=== PATIENT | male | born 1985 | race American Indian/Alaskan Native ===

== ENCOUNTER 2018-06-04 08:05 | Emergency (ER) | payer MEDICAID, OTHER ==
--- NOTE | 2018-06-04 09:48 | Emergency Department Report ---
HPI - General Chief Complaint: Psych Time Seen by Provider: 06/04/18 09:37 - HPI HPI: Room 13 The patient is a 33-year-old male presented with a chief complaint suicidal ideation. The patient states he's been feeling depressed and suicidal since 03:00 this morning. Patient denies any attempts at trying to harm himself but states his plan was to overdose on pills. Patient admits to previous suicide attempt one year ago by overdosing on pills Location: Mental state Duration: Onset at 03:00 Quality: Suicidal Severity: Severe Modifying factors: [see above] Context: [see above] Mode of transportation: [not driving] ED Past Medical Hx - Past Medical History Hx Hypertension: Yes Hx Psychiatric Treatment: Yes ([facility], [facility]) Hx Asthma: Yes - Surgical History Past Surgical History?: No - Family History Family history: no significant - Social History Smoking Status: Current Every Day Smoker (1/3 pack per day) Substance Use Type: None (denies illicit drug use), Alcohol (frequently) - Medications Home Medications: Home Medications Medication Instructions Recorded Confirmed Last Taken Type Amlodipine Besylate [Norvasc] 2.5 mg PO DAILY 02/19/13 02/19/13 Unknown History LORazepam [Ativan] 02/19/13 02/19/13 Unknown History Quetiapine Fumarate [Seroquel] 25 mg PO 02/19/13 02/19/13 Unknown History ED Review of Systems ROS: Stated complaint: THOUGHTS OF HURTING SELF Other details as noted in HPI Constitutional: no symptoms reported Eyes: denies: eye pain ENT: denies: throat pain Respiratory: no symptoms reported Cardiovascular: denies: chest pain Endocrine: no symptoms reported Gastrointestinal: denies: abdominal pain Genitourinary: denies: dysuria Musculoskeletal: denies: back pain Neurological: denies: headache Psychiatric: suicidal thoughts Physical Exam - Physical Exam Vital Signs: Vital Signs 06/04/18 08:06 Temperature 98.3 F Pulse Rate 104 H Respiratory 18 Rate Blood Pressure 161/105 [Right] O2 Sat by Pulse 98 Oximetry Physical Exam: GENERAL: The patient is well-developed well-nourished male sitting in chair not appearing to be in acute distress. [] HEENT: Normocephalic. Atraumatic. Extraocular motions are intact. Patient has moist mucous membranes. NECK: Supple. Trachea midline CHEST/LUNGS: Clear to auscultation. There is no respiratory distress noted. HEART/CARDIOVASCULAR: Regular. There is no tachycardia. There is no gallop rub or murmur. ABDOMEN: Abdomen is soft, nontender. Patient has normal bowel sounds. There is no abdominal distention. SKIN: There is no rash. There is no edema. There is no diaphoresis. NEURO: The patient is awake, alert, and oriented. The patient is cooperative. The patient has normal speech MUSCULOSKELETAL: There is no evidence of acute injury. ED Course Vital Signs 06/04/18 08:06 Temperature 98.3 F Pulse Rate 104 H Respiratory 18 Rate Blood Pressure 161/105 [Right] O2 Sat by Pulse 98 Oximetry ED Medical Decision Making - Lab Data Result diagrams: 06/04/18 10:00 06/04/18 10:00 Laboratory Tests 06/04/18 06/04/18 06/04/18 10:00 10:00 10:00 WBC 4.7 RBC 3.56 L Hgb 11.8 Hct 35.1 L MCV 99 H MCH 33 H MCHC 34 RDW 14.6 Plt Count 222 Lymph % (Auto) [employer] [place] % (Auto) [employer] Add Manual Diff Complete Total Counted 100 Seg Neutrophils % [employer] Seg Neuts % (Manual) 44.0 Band Neutrophils % 0 Lymphocytes % (Manual) 41.0 H Reactive Lymphs % (Man) 0 Monocytes % (Manual) 10.0 H Eosinophils % (Manual) 5.0 H Basophils % (Manual) 0 Metamyelocytes % 0 Myelocytes % 0 Promyelocytes % 0 Blast Cells % 0 Nucleated RBC % Not Reportable Seg Neutrophils # Man 2.1 Band Neutrophils # 0.0 Lymphocytes # (Manual) 1.9 Abs React Lymphs (Man) 0.0 Monocytes # (Manual) 0.5 Eosinophils # (Manual) 0.2 Basophils # (Manual) 0.0 Metamyelocytes # 0.0 Myelocytes # 0.0 Promyelocytes # 0.0 Blast Cells # 0.0 WBC Morphology Not Reportable Hypersegmented Neuts Not Reportable Hyposegmented Neuts Not Reportable Hypogranular Neuts Not Reportable Smudge Cells Not Reportable Toxic Granulation Not Reportable Toxic Vacuolation Not Reportable Dohle Bodies Not Reportable Pelger-Huet Anomaly Not Reportable Meche Rods Not Reportable Platelet Estimate Consistent w auto Clumped Platelets Not Reportable Plt Clumps, EDTA Not Reportable Large Platelets Not Reportable Giant Platelets Not Reportable Platelet Satelliting Not Reportable Plt Morphology Comment Not Reportable RBC Morphology Not Reportable Dimorphic RBCs Not Reportable Polychromasia Few Hypochromasia Not Reportable Poikilocytosis Not Reportable Anisocytosis 1+ Microcytosis Not Reportable Macrocytosis Not Reportable Spherocytes Not Reportable Pappenheimer Bodies Not Reportable Sickle Cells Not Reportable Target Cells Not Reportable Tear Drop Cells Not Reportable Ovalocytes Not Reportable Helmet Cells Not Reportable [place] Bodies Not Reportable [place] Rings Not Reportable Micha Cells Not Reportable Bite Cells Not Reportable Crenated Cell Not Reportable Elliptocytes Not Reportable Acanthocytes (Spur) Not Reportable Rouleaux Not Reportable Hemoglobin C Crystals Not Reportable Schistocytes Not Reportable Malaria parasites Not Reportable Barron Bodies Not Reportable Hem Pathologist Commnt No Sodium 142 Potassium 4.1 Chloride 104.8 Carbon Dioxide 25 Anion Gap 16 BUN 10 Creatinine 1.0 Estimated GFR > 60 BUN/Creatinine Ratio 10 Glucose 108 H Calcium 9.0 Total Bilirubin 0.20 AST 41 H ALT 84 H Alkaline Phosphatase 47 Total Protein 6.7 Albumin 3.8 L Albumin/Globulin Ratio 1.3 Salicylates < 0.3 L Acetaminophen Plasma/Serum Alcohol 06/04/18 06/04/18 10:00 10:00 WBC RBC Hgb Hct MCV MCH MCHC RDW Plt Count Lymph % (Auto) [place] % (Auto) Add Manual Diff Total Counted Seg Neutrophils % Seg Neuts % (Manual) Band Neutrophils % Lymphocytes % (Manual) Reactive Lymphs % (Man) Monocytes % (Manual) Eosinophils % (Manual) Basophils % (Manual) Metamyelocytes % Myelocytes % Promyelocytes % Blast Cells % Nucleated RBC % Seg Neutrophils # Man Band Neutrophils # Lymphocytes # (Manual) Abs React Lymphs (Man) Monocytes # (Manual) Eosinophils # (Manual) Basophils # (Manual) Metamyelocytes # Myelocytes # Promyelocytes # Blast Cells # WBC Morphology Hypersegmented Neuts Hyposegmented Neuts Hypogranular Neuts Smudge Cells Toxic Granulation Toxic Vacuolation Dohle Bodies Pelger-Huet Anomaly Meche Rods Platelet Estimate Clumped Platelets Plt Clumps, EDTA Large Platelets Giant Platelets Platelet Satelliting Plt Morphology Comment RBC Morphology Dimorphic RBCs Polychromasia Hypochromasia Poikilocytosis Anisocytosis Microcytosis Macrocytosis Spherocytes Pappenheimer Bodies Sickle Cells Target Cells Tear Drop Cells Ovalocytes Helmet Cells [place] Bodies [place] Rings [place]auk Cells Bite Cells Crenated Cell Elliptocytes Acanthocytes (Spur) Rouleaux Hemoglobin C Crystals Schistocytes Malaria parasites Barron Bodies Hem Pathologist Commnt Sodium Potassium Chloride Carbon Dioxide Anion Gap BUN Creatinine Estimated GFR BUN/Creatinine Ratio Glucose Calcium Total Bilirubin AST ALT Alkaline Phosphatase Total Protein Albumin Albumin/Globulin Ratio Salicylates Acetaminophen < 5.0 L Plasma/Serum Alcohol < 0.01 - Differential Diagnosis suicidal ideation Critical care attestation.: If time is entered above; I have spent that time in minutes in the direct care of this critically ill patient, excluding procedure time. ED Disposition Clinical Impression: Suicidal ideation Disposition: [id number]/TX-65 PSY HOSP/PSY UNIT Is pt being admited?: No Does the pt Need Aspirin: No Condition: Serious Referrals: DAMIAN ANTOINE MD [Primary Care Provider] - 3-5 Days Time of Disposition: 12:34 (awaiting acceptance)
[2018-06-04 10:20] LABS: Hematocrit 35.1 % (35.5-45.6); Hemoglobin 11.8 gm/dl (11.8-15.2); Mean Corpuscular HGB Conc 34 % (32-34); Mean Corpuscular Volume 99 fl (84-94); Platelet Count 222 K/mm3 (140-440); Red Blood Count 3.56 M/mm3 (3.65-5.03); Red Cell Distribution Width 14.6 % (13.2-15.2)
[2018-06-04 10:39] LABS: Alanine Aminotransferase 84 units/L (7-56); Albumin 3.8 g/dL (3.9-5); BUN/Creatinine Ratio 10; Blood Urea Nitrogen 10 mg/dL (9-20); Hemolysis Index 5
[2018-06-04 11:14] LABS: Basophils % (Manual) 0 % (0.0-1.8); Total Cells Counted 100
[2018-06-04 11:15] LABS: Anisocytosis 1+; Platelet Estimate Consistent w Auto
[2018-06-05 11:10] LABS: Bilirubin,Urine NEG (Negative); Blood,Urine NEG (Negative); Color,Urine Yellow (Yellow); Protein,Urine <15 mg/dL mg/dL (Negative); Urobilinogen,Urine < 2.0 mg/dL (<2.0); WBC,Urine < 1.0 /HPF (0.0-6.0)
[2018-06-05 11:23] LABS: Amphetamine Screen,Urine PRESUMPTIVE NEGATIVE; Benzodiazepines Screen,Urine PRESUMPTIVE NEGATIVE; Cannabinoid Screen,Urine PRESUMPTIVE NEGATIVE; Cocaine Screen,Urine PRESUMPTIVE NEGATIVE; Methadone Screen,Urine PRESUMPTIVE NEGATIVE; Opiate Screen,Urine PRESUMPTIVE NEGATIVE
--- NOTE | 2018-06-05 14:33 | Consultation ---
History of Present Illness - Reason for Consult Consult date: 06/05/18 Reason for consult: Mental Health Evaluation Requesting physician: SHALOM FRANCO - Chief Complaint Chief complaint: "I don't know what to do" - History of Present Psychiatric Illness 33 y.o. AA male who presented to the ER for SI's. Today the patient is calm, but disorganized during the assessment. He stated being depressed and suicidal since he cannot reach his family. He stated that he came to the ER for several reasons. The patient was asked about his reason for coming to the ER, his answers were not logical. Also, he stated that he have not slept in several days because sleep wasn't needed. He denies HI's and VH's. He denies a poor appetite. He denies recreational drug use and alcohol consumption (etoh). Medications and Allergies Allergies Allergy/AdvReac Type Severity Reaction Status Date / Time No Known Allergies Allergy Verified 02/20/13 00:14 Home Medications Medication Instructions Recorded Confirmed Last Taken Type Amlodipine Besylate [Norvasc] 2.5 mg PO DAILY 02/19/13 06/05/18 Unknown History LORazepam [Ativan] 1 mg PO PRN 02/19/13 02/19/13 Unknown History Quetiapine Fumarate [Seroquel] 25 mg PO 02/19/13 02/19/13 06/02/18 09:00 History Wellbutrin 06/05/18 06/02/18 09:00 History Active Meds: Active Medications Diphenhydramine HCl (Benadryl) 25 mg PO HS CATHERINE Olanzapine (Zyprexa) 5 mg PO HS CATHERINE Past psychiatric history - Past Medical History Past Medical History: No medical history Past Surgical History: No surgical history - past Psychiatric treatment and history psychiatric treatment history: Several inpatient psy settings in the past. Unable to obtain a [facility] psy hx. - Social History Social history: lives with family Mental Status Exam - Vital signs Last Vital Signs Temp 98.9 F 06/05/18 13:58 Pulse 93 H 06/05/18 13:58 Resp 18 06/05/18 13:58 BP 141/94 06/05/18 13:58 Pulse Ox 96 06/05/18 13:58 - Exam Narrative exam: MSE: Appearance: in hospital attire Behavior: poor eye contact Speech: regular rate with loud tone Mood:: "down" Affect: constricted Thought Process: disorganized Thought Content: denies HI's and VH's Motor Activity: ambulatory Cognition: A/O x3 Insight: limited Judgment: poor Results Result Diagrams: 06/04/18 10:00 06/04/18 10:00 All other labs normal. 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 Today the patient is calm and cooperative during the assessment. The patient endorses SI's. UDS is negative. DDx: Bipolar DO with psychosis, Schziaffective DO Recommendation/Plan: Continue 1013 and start Zyprexa 5 mg PO HS for psychosis/mood and Benadryl 25 mg Po HS for sleep. Discussed possible metabolic side effects of Zyprexa with the patient reference Zyprexa. Dispo: The patient was referred to inpatient psy services. Staffed with Dr Jerrell Guajardo.
[2018-06-05] MEDS: BENADRYL PO SCH (22:07)
--- NOTE | 2018-06-06 09:21 | Progress Note ---
Subjective - Reason for Consult Consult date: 06/06/18 Reason for consult: Psychiatry Follow-up - Chief Complaint Chief complaint: "Hello" 33 y.o. AA male who presented to the ER for SI's. Today the patient is calm during the assessment. He stated that he got sleep last night, but continues to endorse SI's without a suicide plan. He stated that the voices are not active. He stated he is still sad about about not being able to contact his family. He denies Hi's and AVH's. He denies any side effects of his medication. 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 Today the patient is calm and cooperative during the assessment. The patient endorses SI's. UDS is negative. DDx: Bipolar DO with psychosis, Schziaffective DO Recommendation/Plan: Continue 1013 and Zyprexa 5 mg PO HS for psychosis/mood and Benadryl 25 mg Po HS for sleep. Discussed possible metabolic side effects of Zyprexa with the patient reference Zyprexa. Dispo: The patient was referred to inpatient psy services. Staffed with Dr Makenzie Guajardo.
[2018-06-06] MEDS: BENADRYL PO SCH (22:08)
--- NOTE | 2018-06-07 12:07 | Progress Note ---
Subjective - Reason for Consult Consult date: 06/07/18 Reason for consult: Psychiatry Follow-up - Chief Complaint Chief complaint: "I'm doing better" 33 y.o. AA male who presented to the ER for SI's. Today the patient is calm and cooperative during the assessment. He stated that he is doing better since getting sleep. He stated that he will stay on his medications when discharged. He would not confirm or deny being sad about not being able to reach his family. He denies SI/HI's and AVH's. He denies any side effects of his medications. Mental Status Exam - Vital signs Last Vital Signs Temp 98.3 F 06/07/18 01:08 Pulse 85 06/07/18 01:08 Resp 18 06/07/18 01:08 BP 123/73 06/07/18 01:08 Pulse Ox 96 06/07/18 01:08 - Exam Narrative exam: MSE: Appearance: calm, cooperative Behavior: regular eye contact Speech: regular rate and tone Mood:: "better" Affect: congruent to mood Thought Process: circumstantial Thought Content: denies SI/HI's and AVH's Motor Activity: ambulatory Cognition: A/O x3 Insight: fair variable Judgment: variable to fair Assessment and Plan Impression: Unspecified Mood DO with psy features. Today the patient is calm and cooperative during the assessment. UDS is negative. DDx: Bipolar DO with psychosis, Schizoaffective DO Recommendation/Plan: Reevaluate 1013 in 24 hours. Continue Zyprexa 5 mg PO HS for psychosis/mood and Benadryl 25 mg Po HS for sleep. Discussed possible metabolic side effects of Zyprexa with the patient reference Zyprexa. Dispo: If the patent's 1013 is rescinded, he can follow up with [facility] for outpatient psy services. Staffed with Dr Tobin.
[2018-06-07] MEDS: BENADRYL PO SCH (21:57)
--- NOTE | 2018-06-08 14:19 | Progress Note ---
Subjective - Reason for Consult Consult date: 06/08/18 Reason for consult: Psychiatry Follow-up - Chief Complaint Chief complaint: "Can I leave" 33 y.o. AA male who presented to the ER for SI's. Today the patient is calm and cooperative, but somewhat disorganized during the assessment. He talked about speaking with his sister on the phone, but could not elaborate what they talked about when asked. He kept saying, "I can write it down for you.." He did state that his sleep have gotten better. He denies SI/Hi's and AVH's. No indications of side effects of his medications. Mental Status Exam - Vital signs Last Vital Signs Temp 98.1 F 06/08/18 08:00 Pulse 63 06/08/18 08:00 Resp 18 06/08/18 08:00 BP 116/56 06/08/18 08:00 Pulse Ox 98 06/08/18 08:00 - Exam Narrative exam: MSE: Appearance: calm Behavior: regular eye contact Speech: regular rate and tone Mood:: "okay" Affect: blunted Thought Process: circumstantial, somewhat disorganized Thought Content: denies SI/HI's and AVH's, delusional Motor Activity: ambulatory Cognition: A/O x3 Insight: variable Judgment: variable Assessment and Plan Impression: Unspecified Mood DO with psy features. Today the patient is calm and cooperative during the assessment. UDS is negative. DDx: Bipolar DO with psychosis, Schizoaffective DO Recommendation/Plan: Continue 1013 and increase Zyprexa to 10 mg PO HS for psychosis/mood continue and Benadryl 25 mg Po HS for sleep. Discussed possible metabolic side effects of Zyprexa with the patient reference Zyprexa. Dispo: The patient was referred to inpatient psy services. Staffed with Dr Tobin.
--- NOTE | 2018-06-09 14:17 | Progress Note ---
Subjective - Reason for Consult Consult date: 06/09/18 Reason for consult: Psychiatric Follow-up Evaluation - Chief Complaint Chief complaint: "I'm alright" Patient is a 33 y.o. AA male who presented to the ER for SI's. Today the patient is calm and cooperative, but somewhat disorganized during the assessment. He reports, " I'm here because I was depressed." He verbalizes improvement with mood. He reports appropriate sleep and appetite. He denies SI/HI's and AVH's. No indications of side effects of his medications. Behavior is bizarre. Appears sexually inappropriate. Mental Status Exam - Vital signs Last Vital Signs Temp 97.9 F 06/09/18 01:20 Pulse 75 06/09/18 01:20 Resp 18 06/09/18 01:20 BP 137/98 06/09/18 01:20 Pulse Ox 97 06/09/18 01:20 - Exam Narrative exam: Mental Status Exam Appearance: calm Behavior: regular eye contact Speech: regular rate and tone Mood:: "I'm alright" Affect: blunted Thought Process: circumstantial, somewhat disorganized Thought Content: denies SI/HI's and AVH's, delusional Motor Activity: ambulatory Cognition: A/O x3 Insight: variable Judgment: variable Assessment and Plan Impression: Unspecified Mood DO with psy features. Today the patient is calm and cooperative during the assessment. UDS is negative. DDx: Bipolar DO with psychosis, Schizoaffective DO Recommendation/Plan: 1. Continue 1013. 2. Continue Zyprexa to 10 mg PO HS for psychosis/mood continue and Benadryl 25 mg Po HS for sleep. Discussed possible metabolic side effects of Zyprexa with the patient reference Zyprexa. Disposition: The patient was referred to inpatient psychiatric services. Staffed with Dr. Makenzie Guajardo
--- NOTE | 2018-06-10 12:53 | Progress Note ---
Subjective - Reason for Consult Consult date: 06/10/18 Reason for consult: Psychiatric Follow-up Evaluation - Chief Complaint Chief complaint: "still feel good" Patient is a 33 y.o. AA male who presented to the ER for SI's. Today the patient is calm and cooperative, but less disorganized during the assessment. he reports that he is feeling better. He verbalizes improvement with mood/psychosis. He reports appropriate sleep and appetite. He denies SI/HI's and AVH's. No indications of side effects of his medications. Behavior continues to be bizarre. Patient is sexually inappropriate. Mental Status Exam - Vital signs Last Vital Signs Temp 98.1 F 06/10/18 07:00 Pulse 57 L 06/10/18 07:00 Resp 18 06/10/18 07:00 BP 119/90 06/10/18 07:00 Pulse Ox 98 06/10/18 07:00 - Exam Narrative exam: Mental Status Exam Appearance: calm Behavior: regular eye contact Speech: regular rate and tone Mood:: "still feel good" Affect: blunted Thought Process: circumstantial, less-disorganized Thought Content: denies SI/HI's and AVH's, delusional (?) Motor Activity: ambulatory Cognition: A/O x3 Insight: variable Judgment: variable Assessment and Plan Impression: Unspecified Mood DO with psy features. Today the patient is calm and cooperative during the assessment. UDS is negative. DDx: Bipolar DO with psychosis, Schizoaffective DO Recommendation/Plan: 1. Continue 1013. 2. Increase Zyprexa to 15 mg PO HS for psychosis/mood continue and Benadryl 25 mg Po HS for sleep. Discussed possible metabolic side effects of Zyprexa with the patient reference Zyprexa. Disposition: The patient was referred to inpatient psychiatric services. Awaiting acceptance. Will staff with Dr. Makenzie Guajardo.
[2018-06-11 07:33] VITALS: BP 105/39
--- NOTE | 2018-06-11 11:14 | Progress Note ---
Subjective - Reason for Consult Consult date: 06/11/18 Reason for consult: Psychiatry Follow-up - Chief Complaint Chief complaint: "Can I leave" Patient is a 33 y.o. AA male who presented to the ER for SI's. Today the patient is calm and cooperative during the assessment. He is more organized today than previous interviews. He stated that he will follow up with outpatient psy services when discharged. He denies SI/HI's and AVH's. He denies any side ef fects of his medications. Per the record, no sexually inappropriate behavior overnight. . Mental Status Exam - Vital signs Last Vital Signs Temp 97.8 F 06/11/18 07:31 Pulse 65 06/11/18 07:31 Resp 18 06/11/18 07:31 BP 105/39 06/11/18 07:31 Pulse Ox 96 06/11/18 07:31 - Exam Narrative exam: MSE: Appearance: calm, cooperative Behavior: regular eye contact Speech: regular rate and tone Mood:: "well" Affect: congruent to mood Thought Process: logical Thought Content: denies SI/HI's and AVH's Motor Activity: ambulatory Cognition: A/O x3 Insight: fair Judgment: fair Assessment and Plan Impression: Unspecified Mood DO with psy features. Today the patient is calm and cooperative during the assessment. UDS is negative. DDx: Bipolar DO with psychosis, Schizoaffective DO Recommendation/Plan: The patient's 1013 expires today and will not be extended. Continue Zyprexa 15 mg PO HS. Discussed possible metabolic side effects of Zyprexa with the patient reference Zyprexa. Dispo: The patient was referred to inpatient psy services. Will staff with Dr Makenzie Guajardo.
--- NOTE | 2018-06-11 13:45 | Emergency Department Report ---
Blank Doc - Documentation Documentation: 1013 rescinded by psychiatry. The patient will be discharged home with follow[facility]
== END 2018-06-11 15:05 ==
LOC: EEVIPCON 08:05 → ED 08:05
DX: F29 Unspecified psychosis not due to a substance or known physiological condition (principal); F39 Unspecified mood [affective] disorder; I10 Essential (primary) hypertension; J45.909 Unspecified asthma, uncomplicated; F17.200 Nicotine dependence, unspecified, uncomplicated
CPT/HCPCS: 36415; 80053; 80307; 81001; 85007; 85025; 99284; G0480; 80320

== ENCOUNTER 2018-06-17 07:56 | Emergency (ER) | payer SELFPAY ==
[2018-06-17 08:06] VITALS: BP 146/88
--- NOTE | 2018-06-17 08:33 | Emergency Department Report ---
HPI - General Chief Complaint: Overdose Time Seen by Provider: 06/17/18 08:20 - HPI HPI: Room 9 The patient is a 33-year-old male presenting with a chief complaint of accidental medication ingestion. Security Systems Specialist is with patient states that she was administering medication to the residence when she accidentally gave the patient brought medication. Medication included one pill of Tegretol 200 mg and one pill of Prozac 20 mg. The patient taken medication is 07:45. Patient has some nausea earlier that has since resolved. When asked how he is feeling currently the patient replies is feeling all right. Patient denies any history of suicidal ideation Location: [See above] Duration: [See above] Quality: [See above] Severity: [See above] Modifying factors: [see above] Context: [see above] Mode of transportation: [not driving] ED Past Medical Hx - Past Medical History Hx Hypertension: Yes Hx Psychiatric Treatment: Yes (depression, [place] and [facility]) Hx Asthma: Yes - Family History Family history: no significant - Social History Smoking Status: Current Every Day Smoker (1/3 pack per day) Substance Use Type: None (denies illicit drug use), Prescribed - Medications Home Medications: Home Medications Medication Instructions Recorded Confirmed Last Taken Type Amlodipine Besylate [Norvasc] 2.5 mg PO DAILY 02/19/13 06/05/18 Unknown History LORazepam [Ativan] 1 mg PO TID PRN 02/19/13 02/19/13 Unknown History Quetiapine Fumarate [Seroquel] 25 mg PO BID 02/19/13 06/07/18 06/02/18 09:00 History Wellbutrin 75 mg PO DAILY 06/05/18 06/07/18 06/02/18 09:00 History ED Review of Systems ROS: Stated complaint: ACCIDENTAL MEDICATION OVERDOSE Other details as noted in HPI Constitutional: no symptoms reported ENT: denies: throat pain Respiratory: no symptoms reported Cardiovascular: denies: chest pain Endocrine: no symptoms reported Gastrointestinal: nausea Genitourinary: denies: dysuria Musculoskeletal: denies: back pain Neurological: denies: headache Psychiatric: denies: suicidal thoughts Physical Exam - Physical Exam Vital Signs: Vital Signs 06/17/18 08:04 Temperature 98.1 F Pulse Rate 105 H Respiratory 18 Rate Blood Pressure 146/88 O2 Sat by Pulse 98 Oximetry Physical Exam: GENERAL: The patient is well-developed well-nourished male lying on stretcher not appearing to be in acute distress. [] HEENT: Normocephalic. Atraumatic. Extraocular motions are intact. Patient has moist mucous membranes. NECK: Supple. Trachea midline CHEST/LUNGS: Clear to auscultation. There is no respiratory distress noted. HEART/CARDIOVASCULAR: Regular. There is no tachycardia. There is no gallop rub or murmur. ABDOMEN: Abdomen is soft, nontender. Patient has normal bowel sounds. There is no abdominal distention. SKIN: There is no rash. There is no edema. There is no diaphoresis. NEURO: The patient is awake, alert, and oriented. The patient is cooperative. The patient has normal speech MUSCULOSKELETAL: There is no evidence of acute injury. ED Course Vital Signs 06/17/18 08:04 Temperature 98.1 F Pulse Rate 105 H Respiratory 18 Rate Blood Pressure 146/88 O2 Sat by Pulse 98 Oximetry ED Medical Decision Making - Lab Data Result diagrams: 06/17/18 08:30 06/17/18 08:30 Laboratory Tests 06/17/18 06/17/18 06/17/18 08:30 08:30 08:30 WBC 3.0 L RBC 4.00 Hgb 13.3 Hct 39.0 MCV 98 H MCH 33 H MCHC 34 RDW 14.0 Plt Count 246 Leon % (Auto) Registered Route Associate Sodium 139 Potassium 3.7 Chloride 101.6 Carbon Dioxide 23 Anion Gap 18 BUN 9 Creatinine 0.8 Estimated GFR > 60 BUN/Creatinine Ratio 11 Glucose 104 H Calcium 8.6 Total Bilirubin 0.30 AST 25 ALT 30 Alkaline Phosphatase 58 Total Protein 7.1 Albumin 3.9 Albumin/Globulin Ratio 1.2 Salicylates < 0.3 L Acetaminophen Carbamazepine Plasma/Serum Alcohol 06/17/18 06/17/18 06/17/18 08:30 08:30 08:30 WBC RBC Hgb Hct MCV MCH MCHC RDW Plt Count Leon % (Auto) Sodium Potassium Chloride Carbon Dioxide Anion Gap BUN Creatinine Estimated GFR BUN/Creatinine Ratio Glucose Calcium Total Bilirubin AST ALT Alkaline Phosphatase Total Protein Albumin Albumin/Globulin Ratio Salicylates Acetaminophen < 5.0 L Carbamazepine 2.0 L Plasma/Serum Alcohol < 0.01 - Differential Diagnosis accidental medication ingestion Critical care attestation.: If time is entered above; I have spent that time in minutes in the direct care of this critically ill patient, excluding procedure time. ED Disposition Clinical Impression: Accidental drug ingestion, Leukopenia Disposition: DC-01 TO HOME OR SELFCARE Is pt being admited?: No Does the pt Need Aspirin: No Condition: Stable Additional Instructions: Return to the emergency department immediately should you develop worsening symptoms, fever, inability to tolerate food or liquid or any other concerns. Referrals: NAV JORGENSEN MD [Staff Physician] - 3-5 Days (Dr. Jorgensen is a primary physician. Please follow up with him to be established as a patient and for further evaluation of your white blood cells) Time of Disposition: 09:47
[2018-06-17 08:53] LABS: Hemoglobin 13.3 gm/dl (11.8-15.2); Mean Corpuscular HGB Conc 34 % (32-34); Mean Corpuscular Volume 98 fl (84-94); Platelet Count 246 K/mm3 (140-440)
[2018-06-17 09:09] LABS: Alanine Aminotransferase 30 units/L (7-56); Albumin 3.9 g/dL (3.9-5); BUN/Creatinine Ratio 11; Blood Urea Nitrogen 9 mg/dL (9-20); Calcium 8.6 mg/dL (8.4-10.2); Hemolysis Index 12
[2018-06-17 10:24] LABS: Band Neutrophils # (Manual) 0.2 K/mm3; Basophils % (Manual) 0 % (0.0-1.8); Total Cells Counted 100
[2018-06-17 10:25] LABS: Anisocytosis Few
== END 2018-06-17 10:10 | disposition home or self-care (01) ==
LOC: ED 07:56
DX: R11.0 Nausea (principal); T42.1X5A Adverse effect of iminostilbenes, initial encounter; T43.225A Adverse effect of selective serotonin reuptake inhibitors, initial encounter; D72.819 Decreased white blood cell count, unspecified; I10 Essential (primary) hypertension; F32.9 Major depressive disorder, single episode, unspecified; F17.200 Nicotine dependence, unspecified, uncomplicated; Y92.89 Other specified places as the place of occurrence of the external cause
CPT/HCPCS: 36415; 80053; 80156; 85007; 85025; 99283; G0480; 80320

== ENCOUNTER 2018-07-12 08:10 | Emergency (ER) | payer SELFPAY ==
[2018-07-12 08:56] LABS: Basophils % (Auto) 0.5 % (0.0-1.8); Eosinophils # (Auto) 0.2 K/mm3 (0.0-0.4); Eosinophils % (Auto) 3.5 % (0.0-4.3); Hematocrit 41.6 % (35.5-45.6); Hemoglobin 14.2 gm/dl (11.8-15.2); Lymphocytes # (Auto) 1.8 K/mm3 (1.2-5.4); Lymphocytes % (Auto) 31.1 % (13.4-35.0); Mean Corpuscular HGB Conc 34 % (32-34); Mean Corpuscular Hemoglobin 33 pg (28-32); Mean Corpuscular Volume 96 fl (84-94); Monocytes # (Auto) 0.8 K/mm3 (0.0-0.8); Monocytes % (Auto) 13.7 % (0.0-7.3); Platelet Count 289 K/mm3 (140-440); Red Blood Count 4.36 M/mm3 (3.65-5.03); Red Cell Distribution Width 14.6 % (13.2-15.2)
[2018-07-12 08:58] LABS: Bilirubin,Urine NEG (Negative); Blood,Urine NEG (Negative); Color,Urine Yellow (Yellow); Protein,Urine <15 mg/dL mg/dL (Negative); Urobilinogen,Urine < 2.0 mg/dL (<2.0)
[2018-07-12 09:04] LABS: BUN/Creatinine Ratio 20; Blood Urea Nitrogen 18 mg/dL (9-20); Calcium 8.9 mg/dL (8.4-10.2); Hemolysis Index 21
[2018-07-12 09:06] LABS: Amphetamine Screen,Urine PRESUMPTIVE NEGATIVE; Benzodiazepines Screen,Urine PRESUMPTIVE NEGATIVE; Cannabinoid Screen,Urine PRESUMPTIVE NEGATIVE; Methadone Screen,Urine PRESUMPTIVE NEGATIVE; Opiate Screen,Urine PRESUMPTIVE NEGATIVE
--- NOTE | 2018-07-12 09:56 | Emergency Department Report ---
ED Psych HPI - General Chief Complaint: Psych Stated Complaint: DEPRESSION Time Seen by Provider: 07/12/18 09:37 Source: patient Mode of arrival: Ambulatory - History of Present Illness Initial Comments: 33 year old male who appears to have "amanda indiffrence". He states I feel a little depressed. He tells me it started yesterday. He states that he has thoughts of hurting himself by taking an overdose of pills this morning. He has not done anything to hurt himself yet. He states that he has a residence that is "nearby". He states that he usually takes trazodone and wellbutrin. However, appears that he has been prescribed Seroquel in the past. He states that he has not been admitted to a [facility] in this area but when he lived elsewhere he was. I don't know if this is accurate information because his past medical history lists local receiving facilities. He is not hallucinating. He does not appear to be particularly paranoid. MD Complaint: suicidal ideation -: hour(s) Associated Psychiatric Symptoms: suicidal ideation History of same: Yes Quality: intermittent Improves With: none Worsens With: none Associated Symptoms: denies other symptoms Treatments Prior to Arrival: none If Self Harm: admits thoughts of - Related Data Home Medications Medication Instructions Recorded Confirmed Last Taken Amlodipine Besylate [Norvasc] 2.5 mg PO DAILY 02/19/13 06/05/18 Unknown LORazepam [Ativan] 1 mg PO TID PRN 02/19/13 02/19/13 Unknown Quetiapine Fumarate [Seroquel] 25 mg PO BID 02/19/13 06/07/18 06/02/18 09:00 Wellbutrin 75 mg PO DAILY 06/05/18 06/07/18 06/02/18 09:00 Allergies Allergy/AdvReac Type Severity Reaction Status Date / Time No Known Allergies Allergy Verified 02/20/13 00:14 ED Review of Systems ROS: Stated complaint: DEPRESSION Other details as noted in HPI Constitutional: denies: chills, fever Eyes: denies: eye pain, eye discharge, vision change ENT: denies: ear pain, throat pain Respiratory: denies: cough, shortness of breath, wheezing Cardiovascular: denies: chest pain, palpitations Endocrine: no symptoms reported Gastrointestinal: denies: abdominal pain, nausea, diarrhea Genitourinary: denies: urgency, dysuria Musculoskeletal: denies: back pain, joint swelling, arthralgia Skin: denies: rash, lesions Neurological: denies: headache, weakness, paresthesias Psychiatric: depression, suicidal thoughts. denies: anxiety Hematological/Lymphatic: denies: easy bleeding, easy bruising ED Past Medical Hx - Past Medical History Hx Hypertension: Yes Hx Psychiatric Treatment: Yes ([facility], [place] and [facility]) Hx Asthma: Yes - Social History Smoking Status: Current Some Day Smoker Substance Use Type: None - Medications Home Medications: Home Medications Medication Instructions Recorded Confirmed Last Taken Type Amlodipine Besylate [Norvasc] 2.5 mg PO DAILY 02/19/13 06/05/18 Unknown History LORazepam [Ativan] 1 mg PO TID PRN 02/19/13 02/19/13 Unknown History Quetiapine Fumarate [Seroquel] 25 mg PO BID 02/19/13 06/07/18 06/02/18 09:00 History Wellbutrin 75 mg PO DAILY 06/05/18 06/07/18 06/02/18 09:00 History ED Physical Exam - General Limitations: No Limitations General appearance: alert, in no apparent distress - Head Head exam: Present: atraumatic, normocephalic - Eye Eye exam: Present: normal appearance - ENT ENT exam: Present: mucous membranes moist - Neck Neck exam: Present: normal inspection - Respiratory Respiratory exam: Present: normal lung sounds bilaterally. Absent: respiratory distress - Cardiovascular Cardiovascular Exam: Present: regular rate, normal rhythm. Absent: systolic murmur, diastolic murmur, rubs, gallop - GI/Abdominal GI/Abdominal exam: Present: soft, normal bowel sounds. Absent: distended, tenderness, guarding, rebound, rigid - Rectal Rectal exam: Present: deferred - Extremities Exam Extremities exam: Present: normal inspection - Back Exam Back exam: Present: normal inspection - Neurological Exam Neurological exam: Present: alert, oriented X3, CN II-XII intact. Absent: motor sensory deficit - Psychiatric Psychiatric exam: Present: normal mood, flat affect - Skin Skin exam: Present: warm, dry, intact, normal color. Absent: rash ED Course Vital Signs 07/12/18 07/12/18 08:15 10:26 Temperature 97.8 F Pulse Rate 114 H 85 Respiratory 18 Rate Blood Pressure 138/83 Blood Pressure 155/75 [Left] O2 Sat by Pulse 98 Oximetry ED Medical Decision Making - Lab Data Result diagrams: 07/12/18 08:32 07/12/18 08:32 Laboratory Results - last 24 hr 07/12/18 07/12/18 07/12/18 08:32 08:32 08:32 WBC RBC Hgb Hct MCV MCH MCHC RDW Plt Count Lymph % (Auto) Fountain % (Auto) Eos % (Auto) Baso % (Auto) Lymph # Fountain # Eos # Baso # Seg Neutrophils % Seg Neutrophils # Sodium 137 Potassium 4.0 Chloride 99.6 Carbon Dioxide 24 Anion Gap 17 BUN 18 Creatinine 0.9 Estimated GFR > 60 BUN/Creatinine Ratio 20 Glucose 133 H Calcium 8.9 Urine Color Urine Turbidity Urine pH Ur Specific [place] Urine Protein Urine Glucose (UA) Urine Ketones Urine Blood Urine Nitrite Urine Bilirubin Urine Urobilinogen Ur Leukocyte Esterase Urine WBC (Auto) Urine RBC (Auto) Salicylates < 0.3 L Urine Opiates Screen Urine Methadone Screen Acetaminophen < 5.0 L Ur Barbiturates Screen Ur Phencyclidine Scrn Ur Amphetamines Screen U Benzodiazepines Scrn U Marijuana (THC) Screen Plasma/Serum Alcohol 07/12/18 07/12/18 07/12/18 08:32 08:32 Unknown WBC 5.6 RBC 4.36 Hgb 14.2 Hct 41.6 MCV 96 H MCH 33 H MCHC 34 RDW 14.6 Plt Count 289 Lymph % (Auto) 31.1 Fountain % (Auto) 13.7 H Eos % (Auto) 3.5 Baso % (Auto) 0.5 Lymph # 1.8 Fountain # 0.8 Eos # 0.2 Baso # 0.0 Seg Neutrophils % 51.2 Seg Neutrophils # 2.9 Sodium Potassium Chloride Carbon Dioxide Anion Gap BUN Creatinine Estimated GFR BUN/Creatinine Ratio Glucose Calcium Urine Color Yellow Urine Turbidity Clear Urine pH 5.0 Ur Specific Wil[place] 1.019 Urine Protein <15 mg/dl Urine Glucose (UA) Neg Urine Ketones Neg Urine Blood Neg Urine Nitrite Neg Urine Bilirubin Neg Urine Urobilinogen < 2.0 Ur Leukocyte Esterase Neg Urine WBC (Auto) 1.0 Urine RBC (Auto) 2.0 Salicylates Urine Opiates Screen Urine Methadone Screen Acetaminophen Ur Barbiturates Screen Ur Phencyclidine Scrn Ur Amphetamines Screen U Benzodiazepines Scrn U Marijuana (THC) Screen Plasma/Serum Alcohol < 0.01 07/12/18 Unknown WBC RBC Hgb Hct MCV MCH MCHC RDW Plt Count Lymph % (Auto) Fountain % (Auto) Eos % (Auto) Baso % (Auto) Lymph # Fountain # Eos # Baso # Seg Neutrophils % Seg Neutrophils # Sodium Potassium Chloride Carbon Dioxide Anion Gap BUN Creatinine Estimated GFR BUN/Creatinine Ratio Glucose Calcium Urine Color Urine Turbidity Urine pH Ur Specific [place] Urine Protein Urine Glucose (UA) Urine Ketones Urine Blood Urine Nitrite Urine Bilirubin Urine Urobilinogen Ur Leukocyte Esterase Urine WBC (Auto) Urine RBC (Auto) Salicylates Urine Opiates Screen Presumptive negative Urine Methadone Screen Presumptive negative Acetaminophen Ur Barbiturates Screen Presumptive negative Ur Phencyclidine Scrn Presumptive negative Ur Amphetamines Screen Presumptive negative U Benzodiazepines Scrn Presumptive negative U Marijuana (THC) Screen Presumptive negative Plasma/Serum Alcohol Laboratory Results - last 24 hr 07/12/18 07/12/18 07/12/18 08:32 08:32 08:32 WBC RBC Hgb Hct MCV MCH MCHC RDW Plt Count Lymph % (Auto) Fountain % (Auto) Eos % (Auto) Baso % (Auto) Lymph # Fountain # Eos # Baso # Seg Neutrophils % Seg Neutrophils # Sodium 137 Potassium 4.0 Chloride 99.6 Carbon Dioxide 24 Anion Gap 17 BUN 18 Creatinine 0.9 Estimated GFR > 60 BUN/Creatinine Ratio 20 Glucose 133 H Calcium 8.9 Urine Color Urine Turbidity Urine pH Ur Specific [place] Urine Protein Urine Glucose (UA) Urine Ketones Urine Blood Urine Nitrite Urine Bilirubin Urine Urobilinogen Ur Leukocyte Esterase Urine WBC (Auto) Urine RBC (Auto) Salicylates < 0.3 L Urine Opiates Screen Urine Methadone Screen Acetaminophen < 5.0 L Ur Barbiturates Screen Ur Phencyclidine Scrn Ur Amphetamines Screen U Benzodiazepines Scrn Urine Cocaine Screen U Marijuana (THC) Screen Drugs of Abuse Note Plasma/Serum Alcohol 07/12/18 07/12/18 07/12/18 08:32 08:32 Unknown WBC 5.6 RBC 4.36 Hgb 14.2 Hct 41.6 MCV 96 H MCH 33 H MCHC 34 RDW 14.6 Plt Count 289 Lymph % (Auto) 31.1 Fountain % (Auto) 13.7 H Eos % (Auto) 3.5 Baso % (Auto) 0.5 Lymph # 1.8 Fountain # 0.8 Eos # 0.2 Baso # 0.0 Seg Neutrophils % 51.2 Seg Neutrophils # 2.9 Sodium Potassium Chloride Carbon Dioxide Anion Gap BUN Creatinine Estimated GFR BUN/Creatinine Ratio Glucose Calcium Urine Color Yellow Urine Turbidity Clear Urine pH 5.0 Ur Specific Wil[place] 1.019 Urine Protein <15 mg/dl Urine Glucose (UA) Neg Urine Ketones Neg Urine Blood Neg Urine Nitrite Neg Urine Bilirubin Neg Urine Urobilinogen < 2.0 Ur Leukocyte Esterase Neg Urine WBC (Auto) 1.0 Urine RBC (Auto) 2.0 Salicylates Urine Opiates Screen Urine Methadone Screen Acetaminophen Ur Barbiturates Screen Ur Phencyclidine Scrn Ur Amphetamines Screen U Benzodiazepines Scrn Urine Cocaine Screen U Marijuana (THC) Screen Drugs of Abuse Note Plasma/Serum Alcohol < 0.01 07/12/18 Unknown WBC RBC Hgb Hct MCV MCH MCHC RDW Plt Count Lymph % (Auto) F[place] % (Auto) Eos % (Auto) Baso % (Auto) Lymph # Fountain # Eos # Baso # Seg Neutrophils % Seg Neutrophils # Sodium Potassium Chloride Carbon Dioxide Anion Gap BUN Creatinine Estimated GFR BUN/Creatinine Ratio Glucose Calcium Urine Color Urine Turbidity Urine pH Ur Specific [place] Urine Protein Urine Glucose (UA) Urine Ketones Urine Blood Urine Nitrite Urine Bilirubin Urine Urobilinogen Ur Leukocyte Esterase Urine WBC (Auto) Urine RBC (Auto) Salicylates Urine Opiates Screen Presumptive negative Urine Methadone Screen Presumptive negative Acetaminophen Ur Barbiturates Screen Presumptive negative Ur Phencyclidine Scrn Presumptive negative Ur Amphetamines Screen Presumptive negative U Benzodiazepines Scrn Presumptive negative Urine Cocaine Screen Presumptive positive U Marijuana (THC) Screen Presumptive negative Drugs of Abuse Note Disclamer Plasma/Serum Alcohol Critical care attestation.: If time is entered above; I have spent that time in minutes in the direct care of this critically ill patient, excluding procedure time. ED Disposition Clinical Impression: Suicidal ideation Depression Qualifiers: Depression Type: major depressive disorder Major depression recurrence: recurrent Active/Remission status: currently active Major depression episode severity: moderate Qualified Code(s): F33.1 - Major depressive disorder, r ecurrent, moderate Disposition: DC/TX-65 PSY HOSP/PSY UNIT Is pt being admited?: No Does the pt Need Aspirin: No Condition: Stable Time of Disposition: 12:03
[2018-07-12 09:59] LABS: Cocaine Screen,Urine PRESUMPTIVE POSITIVE
[2018-07-12] MEDS ORDERED: ALUM-MAG HYDROX-SIMETH 200-200-20MG/5ML PO PRN (12:03)
[2018-07-12] MEDS ORDERED: TYLENOL PO PRN (12:03)
[2018-07-12] MEDS ORDERED: MILK OF MAGNESIA PO PRN (12:03)
--- NOTE | 2018-07-13 13:34 | Consultation ---
History of Present Illness - Reason for Consult Consult date: 07/13/18 Reason for consult: Mental Health Evaluation Requesting physician: ABHIJEET JADE - Chief Complaint Chief complaint: "I don't know what's wrong with me" - History of Present Psychiatric Illness 33 y.o. AA male who presented to the ER with depression. This patient is known to me. Today the patient is cooperative, but somewhat paranoid during the assessment. He stated that he is depressed, but cannot explain why. Throughout the interview, the patient would pause several times before he would answer questions. He would not confirm or deny if he is hearing voices. He is adamant something isn't "right" with him. He denies HI's and VH's. He denies erratic sleep and a poor appetite. He denies recreational drug use, but he was positive for cocaine. He denies alcohol consumption (etoh). Medications and Allergies Allergies Allergy/AdvReac Type Severity Reaction Status Date / Time No Known Allergies Allergy Verified 02/20/13 00:14 Home Medications Medication Instructions Recorded Confirmed Last Taken Type Quetiapine Fumarate [Seroquel] 100 mg PO HS 07/12/18 07/12/18 Unknown History Sertraline [Zoloft] 50 mg PO QDAY 07/12/18 07/12/18 Unknown History Active Meds: Active Medications Acetaminophen (Tylenol) 650 mg PO Q4HR PRN PRN Reason: Pain MILD(1-3)/Fever >100.5/WINTER Al Hydrox/Mg Hydrox/Simethicone (Alum-Mag Hydrox-Simeth [id number]/5ml) 30 ml PO Q4HR PRN PRN Reason: Indigestion Magnesium Hydroxide (Milk Of Magnesia) 30 ml PO Q12HR PRN PRN Reason: Constipation Quetiapine Fumarate (Seroquel) 200 mg PO DAILY CATHERINE Last Admin: 07/13/18 12:50 Dose: 200 mg Documented by: Past psychiatric history - Past Medical History Past Medical History: hypertension, other (Asthma) Past Surgical History: No surgical history - past Psychiatric treatment and history psychiatric treatment history: Several inpatient psy settings in the past. Denies a fam psy hx. - Social History Social history: Lives alone Mental Status Exam - Vital signs Last Vital Signs Temp 97.8 F 07/13/18 01:00 Pulse 75 07/13/18 01:00 Resp 18 07/13/18 01:00 BP 129/72 07/13/18 01:00 Pulse Ox 96 07/13/18 01:00 - Exam Narrative exam: MSE: Appearance: cooperative Behavior: regular eye contact Speech: regular rate and tone Mood: "I'm not sure" Affect: constricted Thought Process: circumstantial Thought Content: denies SI/HI's with VH's. paranoid, delusional Motor Activity: ambulatory Cognition: A/Ox 3 Insight: poor Judgment: poor Results Result Diagrams: 07/12/18 08:32 07/12/18 08:32 All other labs normal. Assessment and Plan Assessment and plan: Impression: Unspecified Mood DO with psy features. Substance Use DO (cocaine). Today the patient is cooperative during the assessment. DDx: Bipolar DO with psychosis, Schizoaffective DO, MDD with psychosis Substance Induced Psychosis Recommendation/Plan: Continue 1013 and start Zyprexa 5 mg PO HS for mood/psychosis. Discussed possible metabolic side effects of Zyprexa with the patient reference Zyprexa. Dispo: The patient was referred to inpatient psy services. Will staff with Dr Makenzie Guajardo.
[2018-07-14] MEDS ORDERED: ZOFRAN ODT ONE (09:15)
[2018-07-14] MEDS ORDERED: ZOFRAN ODT PO ONE (18:19)
[2018-07-14] MEDS ORDERED: TYLENOL PO ONE (20:43)
[2018-07-14] MEDS ORDERED: LEVAQUIN PO SCH (21:00)
[2018-07-15 02:58] VITALS: BP 147/93
== END 2018-07-15 03:11 ==
LOC: EEVIPCON 08:10 → ED 08:10
DX: F32.9 Major depressive disorder, single episode, unspecified (principal); I10 Essential (primary) hypertension; F17.200 Nicotine dependence, unspecified, uncomplicated; J45.909 Unspecified asthma, uncomplicated
CPT/HCPCS: 36415; 80048; 80307; 81001; 85025; 99285; G0480; 80320; Q0162

== ENCOUNTER 2018-08-30 09:06 | Emergency (ER) | payer SELFPAY ==
[2018-08-30 09:14] VITALS: BP 126/92
[2018-08-30] MEDS ORDERED: DELTASONE PO ONE (10:15)
--- NOTE | 2018-08-30 10:26 | Emergency Department Report ---
ED Rash HPI - HPI Chief Complaint: Skin Rash Stated Complaint: RASH Time Seen by Provider: 08/30/18 09:51 Duration: 5 Days Location: Abdomen Suspected Cause: Unknown Rash Symptoms: Yes Itching, No Facial Swelling, No Tongue/Oral Swelling, No Breathing Difficulties, No Choking Sensation, No Wheezing/Dyspnea, No Peeling, No Blistering, No Fever, No Lightheaded, No Malaise, No Myalgias Severity: mild Other History: 33-year-old male presents with red itchy rash localized to his right pelvic region. He denies any recent travel and on contact with unknown substances ED Review of Systems ROS: Stated complaint: RASH Other details as noted in HPI Comment: All other systems reviewed and negative ED Past Medical Hx - Past Medical History Hx Hypertension: Yes Hx Psychiatric Treatment: Yes (depression, [place] and [facility]) Hx Asthma: Yes - Social History Smoking Status: Current Every Day Smoker Substance Use Type: Marijuana - Medications Home Medications: Home Medications Medication Instructions Recorded Confirmed Last Taken Type Quetiapine Fumarate [Seroquel] 100 mg PO HS 07/12/18 07/12/18 Unknown History Sertraline [Zoloft] 50 mg PO QDAY 07/12/18 07/12/18 Unknown History Triamcinolone 0.1% [Kenalog 0.1% 1 applic TP TID #1 tube 08/30/18 Unknown Rx CREAM] diphenhydrAMINE [Benadryl CAP] 25 mg PO Q8HR PRN #20 capsule 08/30/18 Unknown Rx Rash Exam - Exam General: Vital signs noted. No distress. Alert and acting appropriately. HEENT: No Periorbital Edema, No Conjuctival Injection, No Chemosis, No Perioral Edema, No Tongue Edema, No Uvular Edema, No Compromised Airway, No Drooling Lungs: Yes Good Air Exchange (Normal Breath Sounds), No Wheezes, No Ronchi, No S tridor, No Cough, No Labored Respirations, No Retractions, No Use of Accessory Muscles, No Other Abnormal Lung Sounds Heart: Yes Regular, No Murmur Skin: Yes Maculopapular Rash, No Urticarial Rash, No Morbilliform rash, No Bulla(e), No Excoriations, No Weeping, No Tenderness, No Edema, No Encrustations, No Other Other: Positive: Abdomen Normal, Neurologic Normal, Musculoskeletal Normal ED Course Vital Signs 08/30/18 09:09 Temperature 97.9 F Pulse Rate 90 Respiratory 16 Rate Blood Pressure 126/92 O2 Sat by Pulse 97 Oximetry ED Medical Decision Making - Medical Decision Making 33-year-old male presents with a rash of unknown origin on right lower pelvic region. Rashes localized to the pelvic region Discussed the patient needs to take Benadryl for itching and will prescribe topical steroid Patient is in no acute distress, no airway compromise. Patient speaking in clear sentences. Discussed follow-up with primary care physician. Critical care attestation.: If time is entered above; I have spent that time in minutes in the direct care of this critically ill patient, excluding procedure time. ED Disposition Clinical Impression: Rash and nonspecific skin eruption Disposition: TO HOME OR SELFCARE Is pt being admited?: No Does the pt Need Aspirin: No Condition: Stable Instructions: Acute Rash (ED), Urticaria (ED) Additional Instructions: Make sure to follow up with the primary care physician as discussed. Take all your medications as you've been prescribed. If you have any worsening symptoms or develop new symptoms please return to ED immediately. Prescriptions: diphenhydrAMINE [Benadryl CAP] 25 mg PO Q8HR PRN #20 capsule PRN Reason: Itching Triamcinolone 0.1% [Kenalog 0.1% CREAM] 1 applic TP TID #1 tube Referrals: CYNTHIA OZUNA MD [Staff Physician] - 3-5 Days Forms: Work/School Release Form(ED) Time of Disposition: 10:37
== END 2018-08-30 10:46 | disposition home or self-care (01) ==
LOC: ED 09:06
DX: R21 Rash and other nonspecific skin eruption (principal); I10 Essential (primary) hypertension; F32.9 Major depressive disorder, single episode, unspecified; J45.909 Unspecified asthma, uncomplicated; F17.200 Nicotine dependence, unspecified, uncomplicated; F12.10 Cannabis abuse, uncomplicated
CPT/HCPCS: 99282; J7512

== ENCOUNTER 2018-09-11 14:55 | Emergency (ER) | payer OTHER ==
[2018-09-11 15:05] VITALS: BP 130/81
[2018-09-11 15:29] LABS: Bilirubin,Urine NEG (Negative); Blood,Urine NEG (Negative); Color,Urine Yellow (Yellow); Mucus,Urine FEW /HPF; Protein,Urine <15 mg/dL mg/dL (Negative)
[2018-09-11 16:05] LABS: Hematocrit 44.6 % (35.5-45.6); Hemoglobin 15.4 gm/dl (11.8-15.2); Mean Corpuscular HGB Conc 35 % (32-34); Mean Corpuscular Volume 97 fl (84-94); Platelet Count 310 K/mm3 (140-440); Red Blood Count 4.61 M/mm3 (3.65-5.03); Red Cell Distribution Width 14.8 % (13.2-15.2)
[2018-09-11 16:29] LABS: Alanine Aminotransferase 32 units/L (7-56); BUN/Creatinine Ratio 10; Blood Urea Nitrogen 13 mg/dL (9-20); Calcium 8.9 mg/dL (8.4-10.2); Hemolysis Index 16
[2018-09-11 16:38] LABS: Basophils % (Manual) 0 % (0.0-1.8); Total Cells Counted 100
[2018-09-11 16:39] LABS: Poikilocytosis Few
[2018-09-11] MEDS ORDERED: CLARITIN PO ONE (17:00)
[2018-09-11] MEDS ORDERED: DELTASONE PO ONE (17:00)
--- NOTE | 2018-09-11 17:00 | Emergency Department Report ---
Minor Respiratory - HPI Chief Complaint: Nausea/Vomiting/Diarrhea Stated Complaint: N/V Time Seen by Provider: 09/11/18 16:59 Duration: 1 Day Pain Location: Facial, Throat, Nose, Ear, Chest Severity: mild Minor Respiratory: Yes Sore Throat, Yes Able to Tolerate Fluids, No Rhinorrhea, No Ear Pain, No Cough, No Sick Contacts, No Hemoptysis, No Chest Pain, No Shortness of Breath, No Fever Other History: She is a 33-year-old male who comes to the ER complaining of difficulty swallowing because of the thick mucus that he has draining from his sinuses. Vital signs are stable he is afebrile. He is controlling secretions. ABCs intact. Lungs are clear. ED Review of Systems ROS: Stated complaint: N/V Other details as noted in HPI Comment: All other systems reviewed and negative ED Past Medical Hx - Past Medical History Hx Hypertension: Yes Hx Psychiatric Treatment: Yes (depression, [place] and [facility] - [facility]) Hx Asthma: Yes - Surgical History Past Surgical History?: No - Family History Family history: no significant - Social History Smoking Status: Never Smoker Substance Use Type: None - Medications Home Medications: Home Medications Medication Instructions Recorded Confirmed Last Taken Type Quetiapine Fumarate [Seroquel] 100 mg PO HS 07/12/18 07/12/18 Unknown History Sertraline [Zoloft] 50 mg PO QDAY 07/12/18 07/12/18 Unknown History Triamcinolone 0.1% [Kenalog 0.1% 1 applic TP TID #1 tube 08/30/18 Unknown Rx CREAM] diphenhydrAMINE [Benadryl CAP] 25 mg PO Q8HR PRN #20 capsule 08/30/18 Unknown Rx Cetirizine HCl [ZyrTEC] 10 mg PO DAILY #30 capsule 09/11/18 Unknown Rx Fluticasone [Flonase] 1 spray NS QDAY #1 bottle 09/11/18 Unknown Rx predniSONE [Deltasone] 20 mg PO DAILY #5 tablet 09/11/18 Unknown Rx Minor Respiratory Exam - Exam General: Vital signs noted. No distress. Alert and acting appropriately. HEENT: Yes Pharyngeal Erythema, Yes Moist Mucous Membranes, No Pharyngeal Exudates, No Rhinorrhea, No Conjuctival Injection, No Frontal Tenderness, No Maxillary Tenderness Ear: Neither TM Bulge, Neither TM Erythema, Neither EAC Pain, Neither EAC Discharge Neck: Yes Supple, No Adenopathy Lungs: Yes Good Air Exchange, No Wheezes, No Ronchi, No Stridor, No Cough, No Labored Respirations, No Retractions, No Use of Accessory Muscles, No Other Abnormal Lung Sounds Heart: Yes Regular (100 BPM), No Murmur Neurologic: Alert and oriented, no deficits. Musculoskeletal: Unremarkable. ED Course Vital Signs 09/11/18 15:04 Temperature 98.1 F Pulse Rate 112 H Respiratory 20 Rate Blood Pressure 130/81 O2 Sat by Pulse 98 Oximetry ED Medical Decision Making - Lab Data Result diagrams: 09/11/18 15:41 09/11/18 15:41 - Medical Decision Making COMPLAINS OF TICKLE IN THROAT WHEN LAYING DOWN EARS FEEL FULL THROAT SWOLLEN NO COUGH NO FEVER OR CHILLS AMBULATORY AND TAKING PO DC HOME WITH DC PLAN OF CARE Vital Signs 09/11/18 15:04 Temperature 98.1 F Pulse Rate 112 H Respiratory 20 Rate Blood Pressure 130/81 O2 Sat by Pulse 98 Oximetry Lab Results 09/11/18 09/11/18 09/11/18 Range/Units 15:12 15:41 15:41 WBC 7.3 (4.5-11.0) K/mm3 RBC 4.61 (3.65-5.03) M/mm3 Hgb 15.4 H (11.8-15.2) gm/dl Hct 44.6 (35.5-45.6) % MCV 97 H (84-94) fl MCH 33 H (28-32) pg MCHC 35 H (32-34) % RDW 14.8 (13.2-15.2) % Plt Count 310 (140-440) K/mm3 [place] % (Auto) Hand Crown Pouncer Add Manual Diff Complete Total Counted 100 Seg Neuts % (Manual) 64.0 (40.0-70.0) % Band Neutrophils % 0 % Lymphocytes % (Manual) 17.0 (13.4-35.0) % Reactive Lymphs % (Man) 0 % Monocytes % (Manual) 15.0 H (0.0-7.3) % Eosinophils % (Manual) 4.0 (0.0-4.3) % Basophils % (Manual) 0 (0.0-1.8) % Metamyelocytes % 0 % Myelocytes % 0 % Promyelocytes % 0 % Blast Cells % 0 % Nucleated RBC % Not Reportable Seg Neutrophils # Man 4.7 (1.8-7.7) K/mm3 Band Neutrophils # 0.0 K/mm3 Lymphocytes # (Manual) 1.2 (1.2-5.4) K/mm3 Abs React Lymphs (Man) 0.0 K/mm3 Monocytes # (Manual) 1.1 H (0.0-0.8) K/mm3 Eosinophils # (Manual) 0.3 (0.0-0.4) K/mm3 Basophils # (Manual) 0.0 (0.0-0.1) K/mm3 Metamyelocytes # 0.0 K/mm3 Myelocytes # 0.0 K/mm3 Promyelocytes # 0.0 K/mm3 Blast Cells # 0.0 K/mm3 WBC Morphology Not Reportable Hypersegmented Neuts Not Reportable Hyposegmented Neuts Not Reportable Hypogranular Neuts Not Reportable Smudge Cells Not Reportable Toxic Granulation Not Reportable Toxic Vacuolation Not Reportable Dohle Bodies Not Reportable Pelger-Huet Anomaly Not Reportable Meche Rods Not Reportable Platelet Estimate Appears normal Clumped Platelets Not Reportable Plt Clumps, EDTA Not Reportable Large Platelets Not Reportable Giant Platelets Not Reportable Platelet Satelliting Not Reportable Plt Morphology Comment Not Reportable RBC Morphology Not Reportable Dimorphic RBCs Not Reportable Polychromasia Not Reportable Hypochromasia Not Reportable Poikilocytosis Few Anisocytosis Not Reportable Microcytosis Not Reportable Macrocytosis Not Reportable Spherocytes Not Reportable Pappenheimer Bodies Not Reportable Sickle Cells Not Reportable Target Cells Not Reportable Tear Drop Cells Not Reportable Ovalocytes Not Reportable Helmet Cells Not Reportable [place] Bodies Not Reportable [place] Rings Not Reportable [place] Cells Not Reportable Bite Cells Not Reportable Crenated Cell Not Reportable Elliptocytes Not Reportable Acanthocytes (Spur) Not Reportable Rouleaux Not Reportable Hemoglobin C Crystals Not Reportable Schistocytes Not Reportable Malaria parasites Not Reportable Barron Bodies Not Reportable Hem Pathologist Commnt No Sodium 140 (137-145) mmol/L Potassium 4.6 (3.6-5.0) mmol/L Chloride 100.3 (98-107) mmol/L Carbon Dioxide 27 (22-30) mmol/L Anion Gap 17 mmol/L BUN 13 (9-20) mg/dL Creatinine 1.3 (0.8-1.5) mg/dL Estimated GFR > 60 ml/min BUN/Creatinine Ratio 10 % Glucose 105 H (75-100) mg/dL Calcium 8.9 (8.4-10.2) mg/dL Total Bilirubin 0.30 (0.1-1.2) mg/dL AST 26 (5-40) units/L ALT 32 (7-56) units/L Alkaline Phosphatase 54 (35-129) units/L Total Protein 6.9 (6.3-8.2) g/dL Albumin 4.0 (3.9-5) g/dL Albumin/Globulin Ratio 1.4 % Urine Color Yellow (Yellow) Urine Turbidity Clear (Clear) Urine pH 5.0 (5.0-7.0) Ur Specific [place] 1.028 (1.003-1.030) Urine Protein <15 mg/dl (Negative) mg/dL Urine Glucose (UA) Neg (Negative) mg/dL Urine Ketones Tr (Negative) mg/dL Urine Blood Neg (Negative) Urine Nitrite Neg (Negative) Urine Bilirubin Neg (Negative) Urine Urobilinogen 2.0 (<2.0) mg/dL Ur Leukocyte Esterase Neg (Negative) Urine WBC (Auto) 1.0 (0.0-6.0) /HPF Urine RBC (Auto) 1.0 (0.0-6.0) /HPF Urine Mucus Few /HPF Critical care attestation.: If time is entered above; I have spent that time in minutes in the direct care of this critically ill patient, excluding procedure time. ED Disposition Clinical Impression: Sinusitis Disposition: DC-01 TO HOME OR SELFCARE Is pt being admited?: No Does the pt Need Aspirin: No Condition: Stable Instructions: Sinusitis (ED) Additional Instructions: DIET TOLERATED MEDS ORDERED TODAY IN ER FOLLOW INSTRUCTIONS ON THE BOTTLE FOLLOW UP PCP WITHIN 48 HOURS TO ENSURE YOU ARE GETTING BETTER ACTIVITY TOLERATED MOTRIN OR TYLENOL FOR PAIN OR FEVER RETURN TO THE ER FOR WORSENING SYMPTOMS NOT RELIEVED BY YOUR MEDICATIONS. Referrals: [facility] [Outside] - 3-5 Days Time of Disposition: 17:07
== END 2018-09-11 17:19 | disposition home or self-care (01) ==
LOC: ED 14:55
DX: J01.90 Acute sinusitis, unspecified (principal); J45.909 Unspecified asthma, uncomplicated; I10 Essential (primary) hypertension
CPT/HCPCS: 36415; 80053; 81001; 85007; 85025; 99283; J7512

== ENCOUNTER 2019-01-02 20:22 | Emergency (ER) | payer SELFPAY ==
--- NOTE | 2019-01-02 20:29 | Emergency Department Report ---
Blank Doc - Documentation Documentation: 33-year-old male that presents with dizziness. This initial assessment/diagnostic orders/clinical plan/treatment(s) is/are subject to change based on patient's health status, clinical progression and re- assessment by fellow clinical providers in the ED. Further treatment and workup at subsequent clinical providers discretion. Patient/guardians urged not to elope from the ED as their condition may be serious if not clinically assessed and managed. Initial orders include: 1- Patient sent to [facility] for further evaluation and treatment 2- labs 3- orthostatic vitals
[2019-01-02 20:32] VITALS: BP 131/91
[2019-01-02 21:31] LABS: Hematocrit 46.6 % (35.5-45.6); Hemoglobin 15.9 gm/dl (11.8-15.2); Mean Corpuscular HGB Conc 34 % (32-34); Mean Corpuscular Volume 98 fl (84-94); Platelet Count 336 K/mm3 (140-440); Red Blood Count 4.76 M/mm3 (3.65-5.03); Red Cell Distribution Width 13.7 % (13.2-15.2)
[2019-01-02 21:32] LABS: Basophils % (Auto) 0.3 % (0.0-1.8); Eosinophils % (Auto) 0.6 % (0.0-4.3); Lymphocytes # (Auto) 2.9 K/mm3 (1.2-5.4); Lymphocytes % (Auto) 40.6 % (13.4-35.0); Monocytes # (Auto) 1.1 K/mm3 (0.0-0.8); Monocytes % (Auto) 15.3 % (0.0-7.3)
[2019-01-02 21:37] LABS: BUN/Creatinine Ratio 18; Blood Urea Nitrogen 21 mg/dL (9-20); Hemolysis Index 15
--- NOTE | 2019-01-02 23:25 | Emergency Department Report ---
ED ENT HPI - General Chief complaint: Sore Throat Stated complaint: DIZZY,SORE THROAT Time Seen by Provider: 01/02/19 20:28 Source: patient Mode of arrival: Ambulatory Limitations: No Limitations - History of Present Illness Initial comments: Patient is a 33-year-old male who presents emergency room with complaints of sore throat that began 2 days ago. He states he has pain with swallowing. pt states he has also been experiencing some muscle spasms and intermittent mild nausea. pt was concerned his "magnesium was low." He denies any fever, vomiting, diarrhea, urinary symptoms, dark urine, any other symptoms at all. He denies any sick contacts. 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 He denies any past medical history or allergies medications. - Related Data Home Medications Medication Instructions Recorded Confirmed Last Taken Quetiapine Fumarate [Seroquel] 100 mg PO HS 07/12/18 07/12/18 Unknown Sertraline [Zoloft] 50 mg PO QDAY 07/12/18 07/12/18 Unknown Previous Rx's Medication Instructions Recorded Last Taken Type Triamcinolone 0.1% [Kenalog 0.1% 1 applic TP TID #1 tube 08/30/18 Unknown Rx CREAM] diphenhydrAMINE [Benadryl CAP] 25 mg PO Q8HR PRN #20 capsule 08/30/18 Unknown Rx Cetirizine HCl [ZyrTEC] 10 mg PO DAILY #30 capsule 09/11/18 Unknown Rx Fluticasone [Flonase] 1 spray NS QDAY #1 bottle 09/11/18 Unknown Rx predniSONE [Deltasone] 20 mg PO DAILY #5 tablet 09/11/18 Unknown Rx Nystas/Diphen/Xyl Visc/Mylanta 30 ml MM BID PRN #480 ml 01/02/19 Unknown Rx [Magic Mouthwash] Allergies Allergy/AdvReac Type Severity Reaction Status Date / Time No Known Allergies Allergy Verified 08/30/18 09:08 ED Dental HPI - General Chief complaint: Sore Throat Stated complaint: DIZZY,SORE THROAT Time Seen by Provider: 01/02/19 20:28 Source: patient Mode of arrival: Ambulatory Limitations: No Limitations - Related Data Home Medications Medication Instructions Recorded Confirmed Last Taken Quetiapine Fumarate [Seroquel] 100 mg PO HS 07/12/18 07/12/18 Unknown Sertraline [Zoloft] 50 mg PO QDAY 07/12/18 07/12/18 Unknown Previous Rx's Medication Instructions Recorded Last Taken Type Triamcinolone 0.1% [Kenalog 0.1% 1 applic TP TID #1 tube 08/30/18 Unknown Rx CREAM] diphenhydrAMINE [Benadryl CAP] 25 mg PO Q8HR PRN #20 capsule 08/30/18 Unknown Rx Cetirizine HCl [ZyrTEC] 10 mg PO DAILY #30 capsule 09/11/18 Unknown Rx Fluticasone [Flonase] 1 spray NS QDAY #1 bottle 09/11/18 Unknown Rx predniSONE [Deltasone] 20 mg PO DAILY #5 tablet 09/11/18 Unknown Rx Nystas/Diphen/Xyl Visc/Mylanta 30 ml MM BID PRN #480 ml 01/02/19 Unknown Rx [Magic Mouthwash] Allergies Allergy/AdvReac Type Severity Reaction Status Date / Time No Known Allergies Allergy Verified 08/30/18 09:08 ED Review of Systems ROS: Stated complaint: DIZZY,SORE THROAT Other details as noted in HPI Comment: All other systems reviewed and negative ED Past Medical Hx - Past Medical History Hx Hypertension: Yes Hx Psychiatric Treatment: Yes (depression, [place] and [facility] - [facility]) Hx Asthma: Yes - Surgical History Past Surgical History?: No - Social History Smoking Status: Never Smoker Substance Use Type: None - Medications Home Medications: Home Medications Medication Instructions Recorded Confirmed Last Taken Type Quetiapine Fumarate [Seroquel] 100 mg PO HS 07/12/18 07/12/18 Unknown History Sertraline [Zoloft] 50 mg PO QDAY 07/12/18 07/12/18 Unknown History Triamcinolone 0.1% [Kenalog 0.1% 1 applic TP TID #1 tube 08/30/18 Unknown Rx CREAM] diphenhydrAMINE [Benadryl CAP] 25 mg PO Q8HR PRN #20 capsule 08/30/18 Unknown Rx Cetirizine HCl [ZyrTEC] 10 mg PO DAILY #30 capsule 09/11/18 Unknown Rx Fluticasone [Flonase] 1 spray NS QDAY #1 bottle 09/11/18 Unknown Rx predniSONE [Deltasone] 20 mg PO DAILY #5 tablet 09/11/18 Unknown Rx Nystas/Diphen/Xyl Visc/Mylanta 30 ml MM BID PRN #480 ml 01/02/19 Unknown Rx [Magic Mouthwash] ED Physical Exam - General Limitations: No Limitations General appearance: alert, in no apparent distress - Head Head exam: Present: atraumatic, normocephalic - Eye Eye exam: Present: normal appearance, PERRL, EOMI - ENT ENT exam: Present: normal orophraynx, mucous membranes moist, TM's normal bilaterally, normal external ear exam, other (no tonsillar hypertrophy, no tonsillar exudates, uvula is midline, no uvula edema, tolerating secretions without difficulty) - Respiratory Respiratory exam: Present: normal lung sounds bilaterally. Absent: respiratory distress, wheezes, rales, rhonchi, stridor, chest wall tenderness, accessory muscle use, decreased breath sounds, prolonged expiratory - Cardiovascular Cardiovascular Exam: Present: regular rate, normal rhythm, normal heart sounds. Absent: systolic murmur, diastolic murmur, rubs, gallop - Neurological Exam Neurological exam: Present: alert, oriented X3 - Psychiatric Psychiatric exam: Present: normal affect, normal mood - Skin Skin exam: Present: warm, dry, intact ED Course Vital Signs 01/02/19 20:29 Temperature 98.5 F Pulse Rate 92 H Respiratory 18 Rate Blood Pressure 131/91 O2 Sat by Pulse 98 Oximetry ED Medical Decision Making - Lab Data Result diagrams: 01/02/19 20:47 01/02/19 20:47 Lab Results 01/02/19 01/02/19 01/02/19 Range/Units 20:47 20:47 Unknown WBC 7.1 (4.5-11.0) K/mm3 RBC 4.76 (3.65-5.03) M/mm3 Hgb 15.9 H (11.8-15.2) gm/dl Hct 46.6 H (35.5-45.6) % MCV 98 H (84-94) fl MCH 33 H (28-32) pg MCHC 34 (32-34) % RDW 13.7 (13.2-15.2) % Plt Count 336 (140-440) K/mm3 Lymph % (Auto) 40.6 H (13.4-35.0) % [place] % (Auto) 15.3 H (0.0-7.3) % Eos % (Auto) 0.6 (0.0-4.3) % Baso % (Auto) 0.3 (0.0-1.8) % Lymph # 2.9 (1.2-5.4) K/mm3 [place] # 1.1 H (0.0-0.8) K/mm3 Eos # 0.0 (0.0-0.4) K/mm3 Baso # 0.0 (0.0-0.1) K/mm3 Seg Neutrophils % 43.2 (40.0-70.0) % Seg Neutrophils # 3.1 (1.8-7.7) K/mm3 Sodium 137 (137-145) mmol/L Potassium 4.1 (3.6-5.0) mmol/L Chloride 96.1 L (98-107) mmol/L Carbon Dioxide 27 (22-30) mmol/L Anion Gap 18 mmol/L BUN 21 H (9-20) mg/dL Creatinine 1.2 (0.8-1.5) mg/dL Estimated GFR > 60 ml/min BUN/Creatinine Ratio 18 % Glucose 109 H (75-100) mg/dL Calcium 9.0 (8.4-10.2) mg/dL Phosphorus (2.5-4.5) mg/dL Magnesium (1.7-2.3) mg/dL Group A Strep Rapid Negative (Negative) 01/02/19 Range/Units Unknown WBC (4.5-11.0) K/mm3 RBC (3.65-5.03) M/mm3 Hgb (11.8-15.2) gm/dl Hct (35.5-45.6) % MCV (84-94) fl MCH (28-32) pg MCHC (32-34) % RDW (13.2-15.2) % Plt Count (140-440) K/mm3 Lymph % (Auto) (13.4-35.0) % [place] % (Auto) (0.0-7.3) % Eos % (Auto) (0.0-4.3) % Baso % (Auto) (0.0-1.8) % Lymph # (1.2-5.4) K/mm3 [place] # (0.0-0.8) K/mm3 Eos # (0.0-0.4) K/mm3 Baso # (0.0-0.1) K/mm3 Seg Neutrophils % (40.0-70.0) % Seg Neutrophils # (1.8-7.7) K/mm3 Sodium (137-145) mmol/L Potassium (3.6-5.0) mmol/L Chloride (98-107) mmol/L Carbon Dioxide (22-30) mmol/L Anion Gap mmol/L BUN (9-20) mg/dL Creatinine (0.8-1.5) mg/dL Estimated GFR ml/min BUN/Creatinine Ratio % Glucose (75-100) mg/dL Calcium (8.4-10.2) mg/dL Phosphorus 3.40 (2.5-4.5) mg/dL Magnesium 1.80 (1.7-2.3) mg/dL Group A Strep Rapid (Negative) - Medical Decision Making Patient is a 33-year-old male who presents emergency room with complaints of sore throat that began 2 days ago. He states he has pain with swallowing. pt states he has also been experiencing some muscle spasms and intermittent mild nausea. pt was concerned his "magnesium was low." He denies any fever, vomiting, diarrhea, urinary symptoms, dark urine, any other symptoms at all. He denies any sick contacts. 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 He denies any past medical history or allergies medications. vitals are normal. pt does not appear dehydrated on exam, mucus membranes are moist. on exam: no tonsillar hypertrophy, no tonsillar exudates, uvula is midline, no uvula edema, tolerating secretions without difficulty. rapid strep is negative. lab are stable. electrolytes are normal, kidney function is normal. pt given magic mouthwash for throat discomfort. advised to use as prescribed. discussed with pt the importance of oral rehydration. advised to follow up with a primary care doctor in the next 2-3 days. return to the emergency room for any new or worsening symptoms. Critical care attestation.: If time is entered above; I have spent that time in minutes in the direct care of this critically ill patient, excluding procedure time. ED Disposition Clinical Impression: Pain in throat, Nausea, Muscle spasm Disposition: DC-01 TO HOME OR SELFCARE Is pt being admited?: No Does the pt Need Aspirin: No Condition: Stable Additional Instructions: please use medication as prescribed. please drink 8 glasses of water a day, it is very important to increase your fluid intake. Follow up with a primary care doctor in the next 2-3 days. return to the emergency room for any new or worsening symptoms. Prescriptions: Nystas/Diphen/Xyl Visc/Mylanta [Magic Mouthwash] 30 ml MM BID PRN #480 ml PRN Reason: sore throat Referrals: [facility] [Provider Group] - 2-3 Days [facility] [Outside] - 2-3 Days [facility] [Outside] - 2-3 Days Time of Disposition: 23:26 Print Language: UGANDAN
== END 2019-01-02 23:30 | disposition home or self-care (01) ==
LOC: ED 20:22
DX: J02.9 Acute pharyngitis, unspecified (principal); R11.0 Nausea; M62.838 Other muscle spasm; I10 Essential (primary) hypertension; F32.9 Major depressive disorder, single episode, unspecified; J45.909 Unspecified asthma, uncomplicated; Z79.899 Other long term (current) drug therapy
CPT/HCPCS: 36415; 80048; 83735; 84100; 85025; 87116; 87430

== ENCOUNTER 2019-01-14 10:00 | Emergency (ER) | payer SELFPAY ==
--- NOTE | 2019-01-14 10:40 | XRay Report ---
CHEST 2 VIEWS INDICATION: Chest Pain. COMPARISON: None FINDINGS: Support devices: None. Heart: Within normal limits. Lungs/pleura: No acute air space or interstitial disease. No pneumothorax. Additional findings: None. IMPRESSION: No acute findings. Signer Name: Colby Paz Jr, MD Signed: 01/14/2019 10:36 AM Workstation Name: [id number]
[2019-01-14] MEDS ORDERED: LORazepam 1 MG TAB PO ONE (12:13)
--- NOTE | 2019-01-14 12:18 | Emergency Department Report ---
ED General Adult HPI - General Chief complaint: Chest Pain Stated complaint: CHEST PAIN Time Seen by Provider: 01/14/19 11:35 Source: patient Mode of arrival: Ambulatory Limitations: No Limitations - History of Present Illness Initial comments: Is a 33-year-old male presents to ED complaining of chest pain that has been worsening with coughing. Patient says chest pain beginning this morning. Patient states that it is happening before and usually when he is under a lot of stress. Patient states that when he is under a lot of stress he gets his int ermittent pain in the left side of the chests that's nonradiating elsewhere. He denies fevers/chills/nausea vomiting/coughing/shortness of breath Severity scale (0 -10): 8 - Related Data Home Medications Medication Instructions Recorded Confirmed Last Taken Quetiapine Fumarate [Seroquel] 100 mg PO HS 07/12/18 07/12/18 Unknown Sertraline [Zoloft] 50 mg PO QDAY 07/12/18 07/12/18 Unknown Previous Rx's Medication Instructions Recorded Last Taken Type Triamcinolone 0.1% [Kenalog 0.1% 1 applic TP TID #1 tube 08/30/18 Unknown Rx CREAM] diphenhydrAMINE [Benadryl CAP] 25 mg PO Q8HR PRN #20 capsule 08/30/18 Unknown Rx Cetirizine HCl [ZyrTEC] 10 mg PO DAILY #30 capsule 09/11/18 Unknown Rx Fluticasone [Flonase] 1 spray NS QDAY #1 bottle 09/11/18 Unknown Rx predniSONE [Deltasone] 20 mg PO DAILY #5 tablet 09/11/18 Unknown Rx Nystas/Diphen/Xyl Visc/Mylanta 30 ml MM BID PRN #480 ml 01/02/19 Unknown Rx [Magic Mouthwash] Naproxen [Naprosyn] 500 mg PO BID #30 tablet 01/14/19 Unknown Rx Allergies Allergy/AdvReac Type Severity Reaction Status Date / Time No Known Allergies Allergy Verified 08/30/18 09:08 ED Review of Systems ROS: Stated complaint: CHEST PAIN Other details as noted in HPI Comment: All other systems reviewed and negative ED Past Medical Hx - Past Medical History Previous Medical History?: Yes Hx Hypertension: Yes Hx Psychiatric Treatment: Yes (depression, [place] and [facility]) Hx Asthma: Yes - Surgical History Past Surgical History?: No - Social History Smoking Status: Never Smoker Substance Use Type: None - Medications Home Medications: Home Medications Medication Instructions Recorded Confirmed Last Taken Type Quetiapine Fumarate [Seroquel] 100 mg PO HS 07/12/18 07/12/18 Unknown History Sertraline [Zoloft] 50 mg PO QDAY 07/12/18 07/12/18 Unknown History Triamcinolone 0.1% [Kenalog 0.1% 1 applic TP TID #1 tube 08/30/18 Unknown Rx CREAM] diphenhydrAMINE [Benadryl CAP] 25 mg PO Q8HR PRN #20 capsule 08/30/18 Unknown Rx Cetirizine HCl [ZyrTEC] 10 mg PO DAILY #30 capsule 09/11/18 Unknown Rx Fluticasone [Flonase] 1 spray NS QDAY #1 bottle 09/11/18 Unknown Rx predniSONE [Deltasone] 20 mg PO DAILY #5 tablet 09/11/18 Unknown Rx Nystas/Diphen/Xyl Visc/Mylanta 30 ml MM BID PRN #480 ml 01/02/19 Unknown Rx [Magic Mouthwash] Naproxen [Naprosyn] 500 mg PO BID #30 tablet 01/14/19 Unknown Rx ED Physical Exam - General Limitations: No Limitations General appearance: alert, in no apparent distress - Head Head exam: Present: atraumatic, normocephalic - Eye Eye exam: Present: normal appearance - ENT ENT exam: Present: mucous membranes moist - Neck Neck exam: Present: normal inspection - Respiratory Respiratory exam: Present: normal lung sounds bilaterally. Absent: respiratory distress - Cardiovascular Cardiovascular Exam: Present: regular rate, normal rhythm. Absent: systolic murmur, diastolic murmur, rubs, gallop - GI/Abdominal GI/Abdominal exam: Present: soft, normal bowel sounds - Rectal Rectal exam: Present: deferred - Extremities Exam Extremities exam: Present: normal inspection - Back Exam Back exam: Present: normal inspection - Neurological Exam Neurological exam: Present: alert, oriented X3 - Psychiatric Psychiatric exam: Present: normal affect, normal mood - Skin Skin exam: Present: warm, dry, intact, normal color. Absent: rash ED Course Vital Signs 01/14/19 01/14/19 01/14/19 10:22 10:46 13:16 Temperature 98.7 F 98.7 F Pulse Rate 75 75 71 Respiratory 20 20 16 Rate Blood Pressure 116/75 Blood Pressure 116/75 118/80 [Right] O2 Sat by Pulse 98 98 100 Oximetry ED Medical Decision Making - Radiology Data Radiology results: report reviewed, image reviewed CHEST 2 VIEWS INDICATION: Chest Pain. COMPARISON: None FINDINGS: Support devices: None. Heart: Within normal limits. Lungs/pleura: No acute air space or interstitial disease. No pneumothorax. Additional findings: None. IMPRESSION: No acute findings. Signer Name: Colby Paz Jr, MD Signed: 01/14/2019 10:36 AM Workstation Name: [id number] Transcribed By: TTR Dictated By: COLBY PAZ JR, MD Electronically Authenticated By: COLBY PAZ JR, MD Signed Date/Time: 01/14/19 1036 - Medical Decision Making 33-year-old male who presents with atypical chest pain. Chest x-ray shows no acute findings, EKG within normal limits. Patient has no cardiac history. Patient states he thinks he may have anxiety wounds medication for anxiety. I discussed the patient that he will need to see a psychiatrist who will e valuate him and then give him a prescription as needed. Vital signs are normal patient is in no acute distress. Patient is interactive and oriented and alert throughout ED stay. He is in no acute or respiratory distress. Critical care attestation.: If time is entered above; I have spent that time in minutes in the direct care of this critically ill patient, excluding procedure time. ED Disposition Clinical Impression: Atypical chest pain Disposition: DC-01 TO HOME OR SELFCARE Is pt being admited?: No Does the pt Need Aspirin: No Condition: Stable Instructions: Chest Pain (ED), Costochondritis (ED), Anxiety (ED) Additional Instructions: Make sure to follow up with the primary care physician as discussed. Follow-up with the psychiatrist referrals given. Take all your medications as you've been prescribed. If you have any worsening symptoms or develop new symptoms please return to ED immediately. Prescriptions: Naproxen [Naprosyn] 500 mg PO BID #30 tablet Referrals: ROX NASSAR MD [Primary Care Provider] - 3-5 Days VELIA HILARIO MD [Referring] - 3-5 Days LELE BRITTON MD [Referring] - 3-5 Days [facility] [Outside] - 3-5 Days [facility] [Outside] - 3-5 Days Forms: Accompanied Note, Work/School Release Form(ED) Time of Disposition: 13:06
[2019-01-14 13:17] VITALS: BP 118/80
== END 2019-01-14 13:16 | disposition home or self-care (01) ==
LOC: ED 10:00
DX: R07.89 Other chest pain (principal); R05 Cough; I10 Essential (primary) hypertension; J45.909 Unspecified asthma, uncomplicated; F32.9 Major depressive disorder, single episode, unspecified; Z79.899 Other long term (current) drug therapy
CPT/HCPCS: 71046; 93005; 93010

== ENCOUNTER 2019-06-01 14:40 | Emergency (ER) | payer SELFPAY ==
--- NOTE | 2019-06-01 15:22 | Event Note ---
ED Screening Note ED Screening Note: Mr. Hector presents with "suicidal ideation", heart racing and lightheadedness This initial assessment/diagnostic orders/clinical plan/treatment(s) is/are subject to change based on patients health status, clinical progression and re- assessment by fellow clinical providers in the ED. Further treatment and workup at subsequent clinical providers discretion. Patient/guardian urged not to elope from the ED as their condition may be serious if not clinically assessed and managed. Initial orders include: labs, MH consult
[2019-06-01 16:00] LABS: Basophils % (Auto) 0.7 % (0.0-1.8); Eosinophils # (Auto) 0.1 K/mm3 (0.0-0.4); Eosinophils % (Auto) 1.2 % (0.0-4.3); Hematocrit 40.9 % (35.5-45.6); Hemoglobin 13.9 gm/dl (11.8-15.2); Lymphocytes # (Auto) 1.9 K/mm3 (1.2-5.4); Lymphocytes % (Auto) 38.1 % (13.4-35.0); Mean Corpuscular HGB Conc 34 % (32-34); Mean Corpuscular Volume 98 fl (84-94); Monocytes # (Auto) 0.7 K/mm3 (0.0-0.8); Monocytes % (Auto) 14.4 % (0.0-7.3); Platelet Count 273 K/mm3 (140-440); Red Blood Count 4.19 M/mm3 (3.65-5.03); Red Cell Distribution Width 13.4 % (13.2-15.2)
[2019-06-01 16:23] LABS: Alanine Aminotransferase 22 units/L (7-56); Albumin 4.4 g/dL (3.9-5); BUN/Creatinine Ratio 26; Blood Urea Nitrogen 23 mg/dL (9-20); Calcium 9.5 mg/dL (8.4-10.2); Hemolysis Index 24
[2019-06-01 23:12] VITALS: BP 122/86
== END 2019-06-02 02:45 | disposition left against medical advice (07) ==
LOC: ED 14:40
DX: R45.851 Suicidal ideations (principal); Z53.21 Procedure and treatment not carried out due to patient leaving prior to being seen by health care provider
CPT/HCPCS: 36415; 80053; 80320; 85025; 93005; 93010; G0480

== ENCOUNTER 2019-06-02 05:37 | Emergency (ER) | payer SELFPAY ==
--- NOTE | 2019-06-02 10:25 | Emergency Department Report ---
ED Psych HPI - General Chief Complaint: Psych Stated Complaint: MH EVAL Time Seen by Provider: 06/02/19 10:10 Source: patient, old records reviewed Mode of arrival: Ambulatory Limitations: No Limitations - History of Present Illness Initial Comments: Chief complaint: " Suicidal ideation" HPI: Mr. Hector is a 34-year-old male with history of hypertension MDD and prior suicide attempt with overdose who presents with "suicidal ideation". He denies a plan to harm himself at this time. He is homeless. He has slept in the ED waiting room overnight. He denies any current physical complaints. MD Complaint: suicidal ideation, feels depressed -: Gradual, days(s) (Several days) Associated Psychiatric Symptoms: depression, suicidal ideation History of same: Yes Quality: constant Improves With: none Worsens With: none Associated Symptoms: denies other symptoms Treatments Prior to Arrival: none If Self Harm: admits thoughts of - Related Data Home Medications Medication Instructions Recorded Confirmed Last Taken Quetiapine Fumarate [Seroquel] 100 mg PO HS 07/12/18 07/12/18 Unknown Sertraline [Zoloft] 50 mg PO QDAY 07/12/18 07/12/18 Unknown Previous Rx's Medication Instructions Recorded Last Taken Type Triamcinolone 0.1% [Kenalog 0.1% 1 applic TP TID #1 tube 08/30/18 Unknown Rx CREAM] diphenhydrAMINE [Benadryl CAP] 25 mg PO Q8HR PRN #20 capsule 08/30/18 Unknown Rx Cetirizine HCl [ZyrTEC] 10 mg PO DAILY #30 capsule 09/11/18 Unknown Rx Fluticasone [Flonase] 1 spray NS QDAY #1 bottle 09/11/18 Unknown Rx predniSONE [Deltasone] 20 mg PO DAILY #5 tablet 09/11/18 Unknown Rx Nystas/Diphen/Xyl Visc/Mylanta 30 ml MM BID PRN #480 ml 01/02/19 Unknown Rx [Magic Mouthwash] Naproxen [Naprosyn] 500 mg PO BID #30 tablet 01/14/19 Unknown Rx Allergies Allergy/AdvReac Type Severity Reaction Status Date / Time No Known Allergies Allergy Verified 08/30/18 09:08 ED Review of Systems ROS: Stated complaint: MH EVAL Other details as noted in HPI Comment: All other systems reviewed and negative Constitutional: denies: fever Respiratory: denies: cough Cardiovascular: denies: chest pain, palpitations Gastrointestinal: denies: abdominal pain, nausea, vomiting Neurological: denies: headache ED Past Medical Hx - Past Medical History Previous Medical History?: Yes Hx Hypertension: Yes Hx Psychiatric Treatment: Yes (depression, [place] and [facility] - [facility]) Hx Asthma: Yes - Surgical History Past Surgical History?: No - Social History Smoking Status: Current Every Day Smoker Substance Use Type: Other - Medications Home Medications: Home Medications Medication Instructions Recorded Confirmed Last Taken Type Quetiapine Fumarate [Seroquel] 100 mg PO HS 07/12/18 07/12/18 Unknown History Sertraline [Zoloft] 50 mg PO QDAY 07/12/18 07/12/18 Unknown History Triamcinolone 0.1% [Kenalog 0.1% 1 applic TP TID #1 tube 08/30/18 Unknown Rx CREAM] diphenhydrAMINE [Benadryl CAP] 25 mg PO Q8HR PRN #20 capsule 08/30/18 Unknown Rx Cetirizine HCl [ZyrTEC] 10 mg PO DAILY #30 capsule 09/11/18 Unknown Rx Fluticasone [Flonase] 1 spray NS QDAY #1 bottle 09/11/18 Unknown Rx predniSONE [Deltasone] 20 mg PO DAILY #5 tablet 09/11/18 Unknown Rx Nystas/Diphen/Xyl Visc/Mylanta 30 ml MM BID PRN #480 ml 01/02/19 Unknown Rx [Magic Mouthwash] Naproxen [Naprosyn] 500 mg PO BID #30 tablet 01/14/19 Unknown Rx ED Physical Exam - General Limitations: No Limitations General appearance: alert, in no apparent distress - Head Head exam: Present: atraumatic, normocephalic - Eye Eye exam: Present: normal appearance - ENT ENT exam: Present: mucous membranes moist - Neck Neck exam: Present: normal inspection - Respiratory Respiratory exam: Present: normal lung sounds bilaterally. Absent: respiratory distress, wheezes, rales, rhonchi - Cardiovascular Cardiovascular Exam: Present: regular rate, normal rhythm, normal heart sounds. Absent: systolic murmur, diastolic murmur, rubs, gallop - GI/Abdominal GI/Abdominal exam: Present: soft, normal bowel sounds. Absent: distended, tenderness, guarding, rebound - Rectal Rectal exam: Present: deferred - Extremities Exam Extremities exam: Present: normal inspection - Neurological Exam Neurological exam: Present: alert, oriented X3 - Psychiatric Psychiatric exam: Present: depressed, flat affect, suicidal ideation - Skin Skin exam: Present: warm, dry, intact, normal color. Absent: rash ED Course Vital Signs 06/02/19 07:07 Temperature 97.3 F L Pulse Rate 106 H Respiratory 18 Rate Blood Pressure 122/84 O2 Sat by Pulse 100 Oximetry ED Medical Decision Making - Medical Decision Making Mr. Hector presents with "suicidal ideation". Has hx of MDD and prior suicide attempt. No plan to harm himself at this time. He is medically clear for psychiatric care. Recent labs were obtained yesterday. CBC chemistry serum toxicology screen on yesterday's encounter were within normal limits. Urinalysis and UDS have been ordered for this ED encounter. Awaiting treatment recommendations by psychiatric team. Critical care attestation.: If time is entered above; I have spent that time in minutes in the direct care of this critically ill patient, excluding procedure time. ED Disposition Condition: Stable
[2019-06-02 11:02] VITALS: BP 111/66
[2019-06-02] MEDS ORDERED: ACETAMINOPHEN 500 MG TAB PO ONE (11:18)
[2019-06-02 11:22] LABS: Bilirubin,Urine NEG (Negative); Blood,Urine NEG (Negative); Color,Urine Straw (Yellow); Mucus,Urine FEW /HPF; Protein,Urine <15 mg/dL mg/dL (Negative); Urobilinogen,Urine < 2.0 mg/dL (<2.0)
[2019-06-02 11:25] LABS: Amphetamine Screen,Urine PRESUMPTIVE NEGATIVE; Benzodiazepines Screen,Urine PRESUMPTIVE NEGATIVE; Cannabinoid Screen,Urine PRESUMPTIVE NEGATIVE; Cocaine Screen,Urine PRESUMPTIVE NEGATIVE; Methadone Screen,Urine PRESUMPTIVE NEGATIVE; Opiate Screen,Urine PRESUMPTIVE NEGATIVE
[2019-06-02 11:33] LABS: WBC,Urine < 1.0 /HPF (0.0-6.0)
== END 2019-06-02 11:50 | disposition left against medical advice (07) ==
LOC: ED 05:37
DX: F32.9 Major depressive disorder, single episode, unspecified (principal); R45.851 Suicidal ideations; I10 Essential (primary) hypertension; J45.909 Unspecified asthma, uncomplicated; F17.200 Nicotine dependence, unspecified, uncomplicated
CPT/HCPCS: 80307; 81001; 99283

== ENCOUNTER 2019-07-10 14:27 | Emergency (ER) | payer SELFPAY ==
--- NOTE | 2019-07-10 15:43 | Emergency Department Report ---
Blank Doc - Documentation Documentation: 34-year-old male that presents with chest pain with cough. Otherwise deniees any cp or sob. This initial assessment/diagnostic orders/clinical plan/treatment(s) is/are subject to change based on patient's health status, clinical progression and re- assessment by fellow clinical providers in the ED. Further treatment and workup at subsequent clinical providers discretion. Patient/guardians urged not to elope from the ED as their condition may be serious if not clinically assessed and managed. Initial orders include: 1- Patient sent to [facility] for further evaluation and treatment 2- CXR
[2019-07-10 15:45] VITALS: BP 139/100
--- NOTE | 2019-07-10 16:31 | XRay Report ---
CHEST 2 VIEWS INDICATION: cough. COMPARISON: 01/14/2019 FINDINGS: Support devices: None. Heart: Within normal limits. Pulmonary vasculature: Normal. Lungs/pleura: No acute air space or interstitial disease. No pneumothorax. Additional findings: None. IMPRESSION: 1. No acute findings. Signer Name: Mario Serrano MD Signed: 07/10/2019 4:26 PM Workstation Name: [id number]
== END 2019-07-10 18:00 | disposition left against medical advice (07) ==
LOC: ED 14:27
DX: R07.9 Chest pain, unspecified (principal); Z53.21 Procedure and treatment not carried out due to patient leaving prior to being seen by health care provider
CPT/HCPCS: 71046; 93005; 93010

== ENCOUNTER 2021-04-05 16:01 | Emergency (ER) | payer SELFPAY ==
--- NOTE | 2021-04-05 21:50 | Emergency Department Report ---
ED General Adult HPI - General Chief complaint: Urogenital-Male Stated complaint: GROIN HERNIA Time Seen by Provider: 04/05/21 21:15 Source: patient Mode of arrival: Ambulatory Limitations: No Limitations - History of Present Illness Initial comments: 35-year-old male [facility] emerge department complaining of needing evaluation for inguinal hernia. Mr. Caballero states that he has had this hernia protrusion for the last 5 or 6 days while he was doing some lifting and pushing but states it has grown in size over the last 3 days. Was seen at a another location today via 7 of the need for a surgical repair due to hernia incarceration for his which which is the cause for his visit his visit here today. No numbness or tingling, no no dysuria no fever chills sweats -: Gradual Severity scale (0 -10): 10 Quality: dull Consistency: constant Improves with: none Worsens with: none Associated Symptoms: denies other symptoms - Related Data Home Medications Medication Instructions Recorded Confirmed Last Taken Quetiapine Fumarate [Seroquel] 100 mg PO HS 07/12/18 07/12/18 Unknown Sertraline [Zoloft] 50 mg PO QDAY 07/12/18 07/12/18 Unknown Previous Rx's Medication Instructions Recorded Last Taken Type Triamcinolone 0.1% [Kenalog 0.1% 1 applic TP TID #1 tube 08/30/18 Unknown Rx CREAM] diphenhydrAMINE [Benadryl CAP] 25 mg PO Q8HR PRN #20 capsule 08/30/18 Unknown Rx Cetirizine HCl [ZyrTEC] 10 mg PO DAILY #30 capsule 09/11/18 Unknown Rx Fluticasone [Flonase] 1 spray NS QDAY #1 bottle 09/11/18 Unknown Rx predniSONE [Deltasone] 20 mg PO DAILY #5 tablet 09/11/18 Unknown Rx Nystas/Diphen/Xyl Visc/Mylanta 30 ml MM BID PRN #480 ml 01/02/19 Unknown Rx [Magic Mouthwash] Naproxen [Naprosyn] 500 mg PO BID #30 tablet 01/14/19 Unknown Rx bisacodyL [Dulcolax] 10 mg PO DAILY #20 tab 04/06/21 Unknown Rx Allergies Allergy/AdvReac Type Severity Reaction Status Date / Time No Known Allergies Allergy Verified 08/30/18 09:08 ED Review of Systems ROS: Stated complaint: GROIN HERNIA Other details as noted in HPI Comment: All other systems reviewed and negative ED Past Medical Hx - Past Medical History Hx Hypertension: Yes Hx Psychiatric Treatment: Yes (depression, [place] and [facility] - NU) Hx Asthma: Yes - Social History Smoking Status: Current Every Day Smoker Substance Use Type: None - Medications Home Medications: Home Medications Medication Instructions Recorded Confirmed Last Taken Type Quetiapine Fumarate [Seroquel] 100 mg PO HS 07/12/18 07/12/18 Unknown History Sertraline [Zoloft] 50 mg PO QDAY 07/12/18 07/12/18 Unknown History Triamcinolone 0.1% [Kenalog 0.1% 1 applic TP TID #1 tube 08/30/18 Unknown Rx CREAM] diphenhydrAMINE [Benadryl CAP] 25 mg PO Q8HR PRN #20 capsule 08/30/18 Unknown Rx Cetirizine HCl [ZyrTEC] 10 mg PO DAILY #30 capsule 09/11/18 Unknown Rx Fluticasone [Flonase] 1 spray NS QDAY #1 bottle 09/11/18 Unknown Rx predniSONE [Deltasone] 20 mg PO DAILY #5 tablet 09/11/18 Unknown Rx Nystas/Diphen/Xyl Visc/Mylanta 30 ml MM BID PRN #480 ml 01/02/19 Unknown Rx [Magic Mouthwash] Naproxen [Naprosyn] 500 mg PO BID #30 tablet 01/14/19 Unknown Rx bisacodyL [Dulcolax] 10 mg PO DAILY #20 tab 04/06/21 Unknown Rx ED Physical Exam - General Limitations: No Limitations General appearance: alert, in no apparent distress - Head Head exam: Present: atraumatic, normocephalic - Eye Eye exam: Present: normal appearance, PERRL, EOMI - ENT ENT exam: Present: mucous membranes moist - Neck Neck exam: Present: normal inspection - Respiratory Respiratory exam: Present: normal lung sounds bilaterally. Absent: respiratory distress - Cardiovascular Cardiovascular Exam: Present: regular rate, normal rhythm. Absent: systolic murmur, diastolic murmur, rubs, gallop - GI/Abdominal GI/Abdominal exam: Present: soft, tenderness, normal bowel sounds, mass (inguinal mass soft and tender. Hernia is reducible on examination does not appear to be strangulated reported in the history). Absent: guarding, rebound, rigid - Rectal Rectal exam: Present: deferred - Extremities Exam Extremities exam: Present: normal inspection, normal capillary refill - Back Exam Back exam: Present: normal inspection - Neurological Exam Neurological exam: Present: alert, oriented X3 - Psychiatric Psychiatric exam: Present: normal affect, normal mood - Skin Skin exam: Present: warm, dry, intact, normal color. Absent: rash ED Course Vital Signs 04/05/21 18:45 Temperature 97.6 F Pulse Rate 85 Respiratory 18 Rate Blood Pressure 117/89 [Right] O2 Sat by Pulse 99 Oximetry ED Medical Decision Making - Lab Data Result diagrams: 04/05/21 22:03 04/05/21 22:03 - Radiology Data [facility] [address] [id number] Cat Scan Report Signed Patient: ZOLTAN CARABALLO MR#: [id number] : 1985 Acct:[id number] Age/Sex: 35 / M ADM Date: 04/05/21 Loc: ED Attending Dr: Ordering Physician: LEON STUBBS Date of Service: 04/06/21 Procedure(s): CT abdomen pelvis w con Accession Number(s): [id number] cc: LEON STUBBS CT ABDOMEN AND PELVIS WITH CONTRAST INDICATION / CLINICAL INFORMATION: Painful hernia to RIGHT inguinal region. TECHNIQUE: Axial CT images were obtained through the abdomen and pelvis after 100 cc Omnipaque [address] scans at this location are performed using CT dose reduction for ALARA by means of automated exposure control. COMPARISON: None available. FINDINGS: LOWER CHEST: No significant abnormality. LIVER: No significant abnormality. BILIARY: The gallbladder is unremarkable. No biliary ductal dilatation. PANCREAS: No significant abnormality. SPLEEN: No significant abnormality. ADRENALS: No significant abnormality. KIDNEYS / URETERS: No significant abnormality. GI TRACT: No significant abnormality of the stomach, small bowel or colon. The appendix is not visualized. PERITONEUM: No free fluid. No free air. No fluid collection. LYMPH NODES: No significant adenopathy. VASCULATURE: No significant abnormality. URINARY BLADDER: No significant abnormality. REPRODUCTIVE ORGANS: No significant abnormality. ADDITIONAL FINDINGS: No right inguinal hernia or other significant right inguinal abnormality is seen. BONES: No significant abnormality. IMPRESSION: 1. No significant right inguinal hernia or other acute abnormalities to explain the patient's pain. Signer Name: Adam Bowers MD Signed: 04/06/2021 4:35 AM Workstation Name: [id number] Transcribed By: CARLEE Dictated By: Adam Bowers MD Electronically Authenticated By: Adam Bowers MD Signed Date/Time: 04/06/21434 DD/ 0 TD/TT: Print Cancel - Medical Decision Making 33-year-old male presents emerged department complaining of right inguinal hernia however on examination the hernia is soft and and is reducible while standing CT scans does show the hernia but no evidence of any strangulation or any vascular compromise. Advised patient need to follow-up with general surgery for definitive treatment of this condition and wear a hernia belt or his perfor m his new normal work duties. A printed copy of the hernia belt was provided to Mr. Schneider for him for his education. Critical care attestation.: If time is entered above; I have spent that time in minutes in the direct care of this critically ill patient, excluding procedure time. ED Disposition Clinical Impression: Inguinal hernia Disposition: 01 HOME / SELF CARE / HOMELESS Is pt being admited?: No Does the pt Need Aspirin: No Condition: Stable Instructions: Inguinal Hernia, Adult, [id number], Laparoscopic Inguinal Hernia Repair, Adult, Open Hernia Repair, Adult, Inguinal Hernia, Adult Additional Instructions: [place] emerged from today for inguinal hernia please obtain a inguinal hernia belt and wear during working hours to help compensate support for range of mot ion and lifting activities Prescriptions: bisacodyL [Dulcolax] 10 mg PO DAILY #20 tab Referrals: PRIMARY CARE, [Primary Care Provider] - 3-5 Days NIRMAL MADDEN MD [Staff Physician] - 3-5 Days
[2021-04-05 22:13] LABS: Bilirubin,Urine NEG (Negative); Blood,Urine NEG (Negative); Color,Urine Yellow (Yellow); Protein,Urine <15 mg/dL mg/dL (Negative); Urobilinogen,Urine < 2.0 mg/dL (<2.0); WBC,Urine < 1.0 /HPF (0.0-6.0)
[2021-04-05 22:19] LABS: Basophils % (Auto) 0.7 % (0.0-1.8); Eosinophils # (Auto) 0.1 K/mm3 (0.0-0.4); Hematocrit 43.4 % (35.5-45.6); Hemoglobin 14.1 gm/dl (11.8-15.2); Lymphocytes # (Auto) 1.7 K/mm3 (1.2-5.4); Lymphocytes % (Auto) 34.8 % (13.4-35.0); Mean Corpuscular HGB Conc 33 % (32-34); Mean Corpuscular Volume 100 fl (84-94); Monocytes # (Auto) 0.6 K/mm3 (0.0-0.8); Monocytes % (Auto) 13.6 % (0.0-7.3); Platelet Count 349 K/mm3 (140-440); Red Blood Count 4.36 M/mm3 (3.65-5.03); Red Cell Distribution Width 14.1 % (13.2-15.2)
[2021-04-05 22:38] LABS: BUN/Creatinine Ratio 25; Blood Urea Nitrogen 20 mg/dL (9-20); Calcium 9.5 mg/dL (8.4-10.2); Hemolysis Index 7
--- NOTE | 2021-04-06 04:39 | Cat Scan Report ---
CT ABDOMEN AND PELVIS WITH CONTRAST INDICATION / CLINICAL INFORMATION: Painful hernia to RIGHT inguinal region. TECHNIQUE: Axial CT images were obtained through the abdomen and pelvis after 100 cc Omnipaque [address] scans at this location are performed using CT dose reduction for ALARA by means of automated exposure control. COMPARISON: None available. FINDINGS: LOWER CHEST: No significant abnormality. LIVER: No significant abnormality. BILIARY: The gallbladder is unremarkable. No biliary ductal dilatation. PANCREAS: No significant abnormality. SPLEEN: No significant abnormality. ADRENALS: No significant abnormality. KIDNEYS / URETERS: No significant abnormality. GI TRACT: No significant abnormality of the stomach, small bowel or colon. The appendix is not visual ized. PERITONEUM: No free fluid. No free air. No fluid collection. LYMPH NODES: No significant adenopathy. VASCULATURE: No significant abnormality. URINARY BLADDER: No significant abnormality. REPRODUCTIVE ORGANS: No significant abnormality. ADDITIONAL FINDINGS: No right inguinal hernia or other significant right inguinal abnormality is seen . BONES: No significant abnormality. IMPRESSION: 1. No significant right inguinal hernia or other acute abnormalities to explain the patient's pain. Signer Name: Adam Bowers MD Signed: 04/06/2021 4:35 AM Workstation Name: [id number]
[2021-04-06 06:22] VITALS: BP 136/86
== END 2021-04-06 06:25 | disposition home or self-care (01) ==
LOC: ED 16:01
DX: K40.90 Unilateral inguinal hernia, without obstruction or gangrene, not specified as recurrent (principal); I10 Essential (primary) hypertension; J45.909 Unspecified asthma, uncomplicated; F17.200 Nicotine dependence, unspecified, uncomplicated
CPT/HCPCS: 36415; 74177; 80048; 81001; 82140; 85025; 99284; Q9967